=== PATIENT | male | born 1950 | race Asian ===

== ENCOUNTER 2016-10-13 11:36 | Emergency (ER) | payer BC ==
[~2016-10-13] VITALS: Ht 177.8 cm; Wt 85.2 kg
[2016-10-13 11:43] VITALS: BP 179/85; TEMP 98.3; Ht 177.8 cm; Wt 85.2 kg
--- NOTE | 2016-10-13 11:57 | NUR ---
CARE ASSUMED BY ANDRA BUSH
--- NOTE | 2016-10-13 12:03 | NUR ---
Provider Dr. Mckeon currently @ bedside completing MSE @ this time
--- NOTE | 2016-10-13 12:18 | ERPDOC ---
Departure Disposition Decision Date: October 13, 2016 Disposition Decision Time: 13:16 Disposition: 01 DISCHARGED HOME, SELF-CARE Impression Impression Impression: Primary Impression: Fall Encounter type: initial encounter Qualified Codes: W19.XXXA - Unspecified fall, initial encounter Additional Impression: Contusion Encounter type: initial encounter Contusion area: head Contusion of head detail: unspecified part of head Qualified Codes: S00.93XA - Contusion of unspecified part of head, initial encounter Severity: Mild Condition: Improved Seen By: Physician only Referrals: [facility] DO (Family) 2 Days Patient Instructions: Head Injury (ED), Hip Contusion (ED) Problems/Meds/Labs Reviewed?: Yes Medications reviewed and manag: Yes Follow up care ordered?: Yes Mental Status: Alert, Oriented HPI - Fall/Injury General Chief Complaint: Fall Stated Complaint: FELL HIT HEAD Time Seen by Provider: 11:46 Source: patient, family Exam Limitations: no limitations HPI - Fall/Injury Initial Comments 66-year-old male presents to the emergency department with his family for evaluation after suffering a fall 4 days ago. Patient suffered a mechanical fall in the hallway of his home when he slipped with his walking aid and lost his balance. Patient did strike his head. No loss of consciousness. Patient notes that he is experiencing a mild posterior dull headache without radiation. Patient also complains of generalized neck discomfort. Patient denies any other complaints or associated symptoms. Patient states that his symptoms have been persistent in nature since onset. He is currently taking Plavix and Aggrenox due to a history of multiple strokes in the past. Per patient and family at bedside patient is at his neurologic baseline with residual deficit on the left-hand side from prior strokes. Patient denies any chest pain or shortness of breath. Patient does not note any exacerbating or remitting factors. Occurred At: home Onset: Constant Allergies: Coded Allergies: No Known Allergies (Unverified , 10/13/16) Past History Past Medical History Metabolic: diabetes, hypertension Cardiac: CAD Neurological: CVA Surgical History Cardiac: cardiac cath Family History Family PMH: FOUND: diabetes Social History Smoking Status: Never smoker Substance Use Type: does not use Alcohol Intake: none Review of Systems Constitutional Constitutional: DENIES: chills, fever Eyes General: DENIES: erythema, exudate Lids/Accessories: DENIES: erythema, swelling Vision: DENIES: acuity, blurring ENMT Ears: DENIES: drainage, erythema Hearing: DENIES: hearing loss Balance: DENIES: ataxia, falling to one side Sinuses: DENIES: congestion, pain Nose: DENIES: nosebleeds Mouth/Throat: DENIES: painful swallowing, sore throat Teeth: DENIES: pain Jaw: DENIES: pain Cardiovascular Cardiac: DENIES: chest pain, dyspnea on exertion Rhythm/Rate: DENIES: irregular beat, palpitations Vascular: DENIES: pedal edema, unilateral swelling Pulmonary Respiratory: DENIES: cough, dyspnea, pleuritic chest pain, sputum GI Upper Abdomen: DENIES: nausea, pain, vomiting Lower Abdomen: DENIES: diarrhea, pain General: DENIES: burning, dysuria, frequency, urgency Musculoskeletal General: tenderness, DENIES: joint pain Integumentary Skin: DENIES: itching, rash Neurological General: headache, DENIES: change in strength, numbness, weakness Psychiatric Psychiatric: DENIES: emotional instability, suicidal ideation/attempt Endocrine Endocrine: DENIES: polydipsia, polyphagia Hematologic/Lymphatic Hematologic/Lymphatic: DENIES: frequent nosebleeds, lymphadenopathy Allergic/Immunological Allergic/Immunoligical: DENIES: allergic reactions, hives Physical Exam General General Nourishment: well nourished, well developed, appears stated age, no acute distress, adult General Body Habitus: well groomed Vitals and Pain First Documented Vital Signs Date Time Temp Pulse Resp B/P Pulse Ox O2 Delivery O2 Flow Rate FiO2 10/13/16 11:43 98.3 78 16 179/85 96 Room Air Weight: Kilograms: 85.200 Height (feet): 5 Height (inches): 10.00 Triage Pain Scale: RN VS reviewed by Provider: Yes Normal Exams: Head: Normocephalic w/o trauma Eyes: Pupils are PERRLA w/ EOMI, No scleral icterus, irritation, or foreign bodies noted ENMT: No facial trauma, nasal exudates, pharyngeal erythema, or exudates are noted Dental: No fractured, loose, or missing teeth noted Neck: without adenopathy, JVD, bruits or thyromegaly Chest/Resp: Clear all shelley, with good airflow, and symmetry bilaterally CV: Regular rate and rhythm, without murmur or gallop, Pulses 2+ all extremities, capillary refill, <2 seconds all ext., no pedal edema noted Abdomen: Bowel sounds positive, soft, non-tender, non-distended, no hepatosplenomegaly, masses or bruits noted Lymphatic: No lymphadenopathy, or lymphedema noted Musculoskeletal: No tenderness, or deformity noted, good range of motion, all extremities Integumentary: No rashes, hives, or bruising noted, hair and nails, without abnormality Neurologic: Patient is alert, and oriented, cranial nerves, motor/sensory/ cerebellar, exams w/o gross deficits, to observation Psychiatric: Patient exhibits, appropriate attention, emotion and affect Musculoskeletal (brief) Comments Right hip - mildly tender to palpation. Full range of motion. No focal bony tenderness. Pulses intact. Sensation intact. capillary refill less than 2. No other tenderness in the right lower extremity. Gait is normal for patient. No midline tenderness to the cervical spine. + Generalized discomfort. No midline tenderness to the thoracic spine with a generalized paraspinal muscular discomfort. No tenderness to palpation in the lumbar spine. Neurologic (brief) Comments Patient is at neurologic baseline with chronic left-sided deficit from prior CVA. Differential Diagnoses Considering: Contusion, Fracture, Sprain, Strain Progress Results/Orders Orders Procedure Category Date Status Time Ct Head W/O Contrast CT 10/13/16 Resulted 12:11 Ct Cervical Spine W/O CT 10/13/16 Resulted Contrast 12:11 Thoracic Spine RAD 10/13/16 Resulted Series, 3 View 12:11 Pelvis W/2 View Rt Hip RAD 10/13/16 Resulted 12:11 Acetaminophen PHA 10/13/16 Complete (Tylenol Extra 13:15 Medications Current ED Medications Acetaminophen (Tylenol Extra Strength) 1,000 mg O ONCE PO ; Start 10/13/16 at 13:15; Stop 10/13/16 at 13:16; Status DC Progress Progress Imaging is discussed in detail with the patient and family and questions are answered. Patient is given analgesic pain medication with improvement of symptoms in the emergency Department. Patient is discharged home in improved condition. He is to follow up as instructed. Patient is to return to the emergency department if his condition worsens or changes in any manner. Patient and family are in agreement with the current plan of management. Patient is discharged home in improved condition. patient is to follow up as instructed. Patient is to continue to use acetaminophen [id number] as needed for pain control. Xray Xray : Xray: Hip R (negative. Pelvis: Negative. Thoracic spine: Negative) Interpretation: Normal CT CT : CT: Head no contrast Interpretation: Normal (cervical spine: Negative.), Reviewed Written Report MARIAELENA TORRES DO October 13, 2016 12:18
[2016-10-13] MEDS ORDERED: BUME1TAB17 PO (12:21)
[2016-10-13] MEDS ORDERED: [UNRECOGNIZED DRUG - CODE] PO (12:21)
[2016-10-13] MEDS ORDERED: PRAV20TA PO (12:21)
[2016-10-13] MEDS ORDERED: HYDR-4246 PO (12:21)
[2016-10-13] MEDS ORDERED: ALLO300T2 PO (12:21)
[2016-10-13] MEDS ORDERED: ASPI1CPM7 PO (12:21)
[2016-10-13] MEDS ORDERED: INSU100V8 SQ (12:21)
[2016-10-13] MEDS ORDERED: [UNRECOGNIZED DRUG - CODE] (12:21)
[2016-10-13] MEDS ORDERED: ALBU18HF2 INH (12:21)
--- NOTE | 2016-10-13 12:21 | NUR ---
RADIOLOGY PATIENT TO RADIOLOGY FOR CT/ XRAY PER CART, STABLE.
--- NOTE | 2016-10-13 12:42 | DI ---
Indication: ITS.REASON: pain, injury, fall three days ago PROCEDURE: CT HEAD W/O CONTRAST: Encounter: Initial Comparison: November 28, 2012 Technique: Axial CT images through the head were performed without contrast. Iterative Reconstruction dose reducing technique was utilized. FINDINGS: Old left parieto-occipital infarct with encephalomalacia and volume loss. Large chronic left frontal lobe infarct with cystic encephalomalacia and volume loss. Ex vacuo dilatation of the left lateral ventricle is again noted. Old right frontal lobe and basal ganglia infarcts as well. The ventricles are stable. There are numerous areas of low attenuation in the white matter which most likely represent changes from chronic microvascular ischemia. There is no evidence of midline displacement. No hemorrhage, signs of acute territorial stroke, mass effect, mass lesions, or edema is evident. Dense calcifications in the intracranial arteries. The visualized portions of the skull base, midface, and calvarium demonstrate no abnormality. The paranasal sinuses are well aerated and free of significant disease. The tympanic and mastoid cavities appear normal. IMPRESSION: No acute intracranial abnormality or hemorrhage. Chronic changes from multiple prior infarcts. .
--- NOTE | 2016-10-13 12:44 | DI ---
Indication: ITS.REASON: pain, injury, fall three days ago PROCEDURE: CT CERVICAL SPINE W/O CONTRAST: Encounter: Initial Comparison: None Technique: Axial CT images through the cervical spine were performed without contrast. Coronal and sagittal reformatted images were also obtained. Automated Exposure Control and Iterative Reconstruction dose reducing techniques were utilized. FINDINGS: The alignment of the cervical spine is straightened which could be due to positioning or muscular spasm/strain. Multilevel degenerative changes are present. There is no evidence of acute fracture or subluxation of the cervical spine. The atlantoaxial articulation, dens, and upper cervical spine demonstrate no subluxation. Disk osteophyte at C5-C6 resulting in moderate right neural foraminal stenosis. The paraspinal soft tissues and spinal canal appear unremarkable. IMPRESSION: No acute traumatic abnormality of the cervical spine. .
--- NOTE | 2016-10-13 13:07 | DI ---
Indication: ITS.REASON: pain, injury PROCEDURE: PELVIS W/2 VIEW RT HIP: Encounter: Initial Comparison: None Findings: No acute fracture or dislocation. Degenerative change in the lower lumbar spine. Right femoral arterial stent. Impression: No acute fracture. .
--- NOTE | 2016-10-13 13:08 | DI ---
Indication: ITS.REASON: Fall with back pain, injury PROCEDURE: THORACIC SPINE SERIES, 3 VIEW: Encounter: Initial Comparison: None Findings: No acute fracture or subluxation seen. Changes of DISH. Vertebral body heights are maintained. Impression: No acute fracture. .
[2016-10-13] MEDS ORDERED: ACETAMINOPHEN 500 MG TABLET PO ONE (13:15)
[2016-10-13 13:32] VITALS: PULSE 82; RESP 16; O2SAT 97
--- NOTE | 2016-10-13 18:32 | NUR ---
[facility] CALLED TO INFORM OF [facility]. WOMAN ON PHONE STATED SOMEONE WOULD BE BY TO [employer].
== END 2016-10-13 13:30 | disposition home or self-care (01) ==
LOC: ED 11:36
DX: S00.93XA Contusion of unspecified part of head, initial encounter (principal); M25.551 Pain in right hip; M54.2 Cervicalgia; M54.9 Dorsalgia, unspecified; W01.0XXA Fall on same level from slipping, tripping and stumbling without subsequent striking against object, initial encounter; Y93.01 Activity, walking, marching and hiking; Y92.008 Other place in unspecified non-institutional (private) residence as the place of occurrence of the external cause; Y99.8 Other external cause status

== ENCOUNTER 2017-09-28 19:09 | Observation (INO) ==
[2017-09-28] MEDS ORDERED: SALINE FLUSH 10ml SYRINGE IVF PRN (19:34)
[2017-09-28] MEDS ORDERED: ONDANSETRON 4 MG/2 ML INJECTION IVP ONE (19:37)
[2017-09-28] MEDS ORDERED: MORPHINE SULFATE 2mg INJ IVP ONE (19:37)
--- NOTE | 2017-09-28 20:47 | Emergency Department Report ---
Weakness HPI - General Chief complaint: Fall Stated complaint: Fell 3 times today not able to stand or walk Source: family, staff scientist Mode of arrival: wheelchair Limitations: no limitations - History of Present Illness HPI Narrative: PT presents after having fallen 3 times today. Through family staff scientist pt complains of weakness and bilateral ankle pain. He does report a history of gout to explain ankle pain. He reports striking his head. He denies fever, cough , or chest pain. MD Complaint: generalized weakness Onset (ago): hour(s) - Related Data Home Medications Medication Instructions Recorded Confirmed Aspirin/Dipyridamole 1 cap PO BID #0 10/13/16 09/28/17 [Aspirin-Dipyridam ER 25-200 mg] Insulin Glargine,Hum.rec.anlog 25 unit SQ HS #0 vial 10/13/16 09/28/17 [Lantus] Pravastatin Sodium [Pravachol] 20 mg PO HS #0 tab 10/13/16 09/28/17 Albuterol HFA Inhaler [Ventolin 1 - 2 puff ORAL INH Q6HR PRN 09/28/17 09/28/17 Hfa 90 mcg/actuation] Allopurinol [Zyloprim] 300 mg PO BID 09/28/17 09/28/17 Bumetanide Tab [Bumex 1 mg Tab] 1 mg PO DAILY 09/28/17 09/28/17 Cilostazol [Pletal] 50 mg PO BID 09/28/17 09/28/17 Levomefolate/B6/B12/Algal Oil 1 each PO BID 09/28/17 09/28/17 [Foltanx Rf Capsule] Metformin HCl [Glucophage] 1,000 mg PO BID 09/28/17 09/28/17 Propranolol [Inderal] 20 mg PO BID 09/28/17 09/28/17 Allergies Allergy/AdvReac Type Severity Reaction Status Date / Time No Known Allergies Allergy Unverified 08/11/17 13:48 Review of Systems All systems: reviewed and negative except as stated Constitutional: Reports: as per HPI Cardiovascular: Reports: as per HPI Respiratory: Reports: as per HPI Musculoskeletal: Reports: as per HPI Neurological: Reports: as per HPI PFSH Patient Stated Medical History Cerebrovascular Accident Yes: affected right side Dysphagia Yes Hypertension Yes Myocardial Infarction Yes Other Respiratory Yes: uses inhaler prn Diabetes Mellitus Type 2 Yes Gastroesophageal Reflux Yes Disease Hx Incontinence Yes Other Musculoskeletal Yes: gout [facility] Medical History (Last Reviewed 08/11/17 @ 14:41 by Alberto Hernandez MD) Acute CVA (cerebrovascular accident) (Acute Medical) Asthma (Acute Medical) Back pain (Acute Medical) Diabetes (Acute Medical) Essential hypertension (Acute Medical) Gout (Acute Medical) Leg weakness (Acute Medical) Mixed hyperlipidemia (Acute Medical) Peripheral artery disease (Acute Medical) Surgical History: stents placed in legs- 2015 Family History: Family History (Last Reviewed 08/11/17 @ 14:41 by Alberto Hernandez MD) Father High blood pressure Sister High blood pressure Brother High blood pressure Mother Bleeding disorder - Social History Smoking status: Never smoker Substance use type: does not use Alcohol intake frequency: does not drink Household members: spouse Current occupational status: disabled Physical Exam - Limitations Limitations: language barrier - General General appearance: alert, in no apparent distress - Normal Exams: Head:: Normocephalic without trauma Eyes:: Pupils are PERRLA w/ EOMI Chest/Respirations:: Clear all shelley, with good airflow, and symmetry bilaterally Cardiovascular:: Regular rate and rhythm (1+ bilateral non pitting edema bilaterally), without murmur or gallop, Pulses 2+ all extremities, capillary refill, <2 seconds all extremities Abdomen:: Bowel sounds positive, soft, non-tender, non-distended Musculoskeletal:: No tenderness, or deformity noted, good range of motion, all extremities Integumentary:: No rashes Neurological:: Patient is alert, and oriented, cranial nerves, motor/sensory/ cerebellar, exams w/o gross deficits, to observation Psychiatric:: Patient exhibits, appropriate attention, emotion and affect Course Vital Signs Temperature 97.8 F 09/28/17 19:20 Pulse Rate 92 09/28/17 19:20 Respiratory Rate 20 09/28/17 19:20 Blood Pressure 179/104 H 09/28/17 19:20 Pulse Oximetry 100 09/28/17 19:20 Temperature 97.8 F 09/28/17 19:20 Pulse Rate 95 09/28/17 20:30 Respiratory Rate 18 09/28/17 21:42 Blood Pressure 162/97 H 09/28/17 20:30 Pulse Oximetry 97 09/28/17 20:30 Weakness - MDM Narrative Medical decision making narrative: Labs, EKG, CT, and Xray results reviewed with no specific acute findings. 500 cc NS bolus provided as well as medication for pain. Son states pt lives with and normally uses a walker however he has been barely able to get out of a chair. Discussed complaint and findings with Dr Rios who agrees to admit. Pt and family voice understanding of plan - Differential Diagnosis Differential diagnosis: Likely: anemia, hypoglycemia, rhabdomyolysis, dehydration - Lab Data Attestation: I reviewed the patient's lab results. Result diagrams: 09/28/17 19:55 09/28/17 19:55 Lab Results 09/28/17 09/28/17 09/28/17 Range/Units 19:55 19:55 20:00 WBC 9.5 (4.5-11.0) T/MM3 RBC 4.50 (4.50-5.90) M/MM3 Hgb 13.0 L (13.5-17.5) GM/DL Hct 40.0 L (41-53) % MCV 88.9 (80-100) UM3 MCH 28.9 (26-34) UUG MCHC 32.5 (31-37) GM/DL RDW Std Deviation 44.4 (36.9-50.2) FL Plt Count 272 (130-400) T/MM3 MPV 8.9 L (9.4-12.4) UM3 Immature Gran % (Auto) 0.3 (0.0-0.5) % Neut % (Auto) 64.0 (33-66) % Lymph % (Auto) 27.8 (23-45) % [place] % (Auto) 7.0 (0-9.0) % Eos % (Auto) 0.7 (0-4) % Baso % (Auto) 0.2 (0-2) % Neut # (Auto) 6.1 (1.8-7.7) T/MM3 Lymph # (Auto) 2.6 (1-4.8) T/MM3 [place] # (Auto) 0.7 (0-0.8) T/MM3 Eos # (Auto) 0.1 (0-0.5) T/MM3 Baso # (Auto) 0.0 (0-0.2) T/MM3 Abs Immat Gran (auto) 0.03 (0.00-0.03) T/MM3 Turbidity < 20 (0-20) Sodium 143 (134-144) MEQ/L Potassium 4.7 (3.6-5) MEQ/L Chloride 104 (98-107) MEQ/L Carbon Dioxide 29 (22-30) MEQ/L Anion Gap 10 (5-15) meq/L BUN 25.0 H (9-20) MG/DL Creatinine 1.3 (0.8-1.5) mg/dL GFR Calculation 55 BUN/Creatinine Ratio 19 (6-26) RATIO Glucose 302 H (75-110) MG/DL Calculated Osmolality 290 H (261-280) MOSM/KG Calcium 9.3 (8.4-10.2) MG/DL Total Bilirubin 0.50 (0.20-1.30) MG/DL Icterus Index < 2 (0-7) AST 20 (17-59) U/L ALT 21 (1-50) U/L Alkaline Phosphatase 120 (38-126) U/L Troponin I < 0.012 (0-0.12) ng/ml NT-Pro-B Natriuret Pep 267 H (0-175) pg/mL Total Protein 7.0 (6.3-8.2) g/dL Albumin 4.1 (3.5-5.0) g/dL Globulin 2.9 (2.4-3.6) G/DL Albumin/Globulin Ratio 1.4 (1.1-2.2) RATIO Specimen Hemolysis < 15 (0-25) Ur Collection Type Urine, void-cc/notcc Urine Color Yellow (YELLOW) Urine Clarity Clear Urine pH 6.5 (5.0-8.0) Ur Specific [place] 1.010 L (1.015-1.025) Urine Protein Trace A (NEGATIVE) Urine Glucose (UA) 3+ A (NEGATIVE) Urine Ketones Negative (NEGATIVE) Urine Occult Blood Negative (NEGATIVE) Urine Nitrate Negative (NEGATIVE) Urine Bilirubin Negative (NEGATIVE) Urine Urobilinogen 0.2 (NORMAL) EU/DL Ur Leukocyte Esterase Negative (NEGATIVE) Urinalysis Comment Microscopic not ind. - Radiology Data Attestation: I reviewed the patient's radiology results. (reads per Dr Arteaga and Tita) Disposition Clinical Impression: Weakness Disposition: To OBS [facility] [place] Condition: Stable Prescriptions: No Action Aspirin/Dipyridamole [Aspirin-Dipyridam ER 25-200 mg] 1 cap PO BID #0 Insulin Glargine,Hum.rec.anlog [Lantus] 25 unit SQ HS #0 vial Albuterol HFA Inhaler [Ventolin Hfa 90 mcg/actuation] 1 - 2 puff ORAL INH Q6HR PRN PRN Reason: Shortness Of Air/Wheezing Allopurinol [Zyloprim] 300 mg PO BID Bumetanide Tab [Bumex 1 mg Tab] 1 mg PO DAILY Metformin HCl [Glucophage] 1,000 mg PO BID Propranolol [Inderal] 20 mg PO BID Levomefolate/B6/B12/Algal Oil [Foltanx Rf Capsule] 1 each PO BID Pravastatin Sodium [Pravachol] 20 mg PO HS #0 tab Cilostazol [Pletal] 50 mg PO BID Referrals: Maria Teresa Alonso MD [Primary Care Provider] - Time of Disposition: 22:07 - Seen By: sandrita
[2017-09-28] MEDS ORDERED: HYDROCODONE/APAP 5mg/325mg TABLET PO PRN (23:12)
[2017-09-28] MEDS ORDERED: IBUPROFEN 600 MG TABLET PO PRN (23:12)
[2017-09-28] MEDS ORDERED: ONDANSETRON 4 MG/2 ML INJECTION IVP PRN (23:12)
[2017-09-28] MEDS: LR 1,000 ML IV SCH (23:28)
--- NOTE | 2017-09-28 23:56 | History & Physical Report ---
History of Present Illness Date: 09/29/17 Chief complaint: weakness and leg pain HPI: patient seen via telemedicine with nursing assistance on 09/28/2017 Mr. Matta is a 66yo man with history of T2D on insulin, essential HTN, dyslipidemia, CVA, and gout. He present with family to the ED with his son who translates not at the bedside now. Please see ED provider documentation as well. 1.5 weeks of increased weakness reported with nonsyncopal falls. No fevers, chills, nausea, sob or CP. Pain noted in the ankles/R lower leg with possible trauma to lower R ortega with lesion now dressed with no pus per nursing. Note xrays in ED no fx or abnormality. No other recent medication changes noted. Review of Systems All systems PM: 10-point ROS was reviewed, no additional remarkable complaints except Past Medical History Medical History: Medical History (Last Reviewed 08/11/17 @ 14:41 by Alberto Hernandez MD) Acute CVA (cerebrovascular accident) Asthma Back pain Diabetes Essential hypertension Gout Leg weakness Mixed hyperlipidemia Peripheral artery disease Surgical History: stents placed in legs- 2015 Family History: Family History (Last Reviewed 08/11/17 @ 14:41 by Alberto Hernandez MD) Father High blood pressure Sister High blood pressure Brother High blood pressure Mother Bleeding disorder Family History Updates: CAD and HTN Family History: Unable to Obtain (language barrier) - Social History Smoking status: Never smoker Substance use type: does not use Medications Home Medications Medication Instructions Recorded Confirmed Type Aspirin/Dipyridamole 1 cap PO BID #0 10/13/16 09/28/17 History [Aspirin-Dipyridam ER 25-200 mg] Insulin Glargine,Hum.rec.anlog 25 unit SQ HS #0 vial 10/13/16 09/28/17 History [Lantus] Pravastatin Sodium [Pravachol] 20 mg PO HS #0 tab 10/13/16 09/28/17 History Albuterol HFA Inhaler [Ventolin 1 - 2 puff ORAL INH Q6HR PRN 09/28/17 09/28/17 History Hfa 90 mcg/actuation] Allopurinol [Zyloprim] 300 mg PO BID 09/28/17 09/28/17 History Bumetanide Tab [Bumex 1 mg Tab] 1 mg PO DAILY 09/28/17 09/28/17 History Cilostazol [Pletal] 50 mg PO BID 09/28/17 09/28/17 History Levomefolate/B6/B12/Algal Oil 1 each PO BID 09/28/17 09/28/17 History [Foltanx Rf Capsule] Metformin HCl [Glucophage] 1,000 mg PO BID 09/28/17 09/28/17 History Propranolol [Inderal] 20 mg PO BID 09/28/17 09/28/17 History Allergies Allergy/AdvReac Type Severity Reaction Status Date / Time No Known Allergies Allergy Unverified 08/11/17 13:48 Exam Vital Signs: Temperature 97.3 F 09/28/17 23:12 Pulse Rate 97 09/28/17 23:12 Respiratory Rate 18 09/28/17 23:12 Blood Pressure 168/110 H 09/28/17 23:12 Pulse Oximetry 98 09/28/17 23:12 Telemetry Rhythm: Sinus Rhythm Height/Weight/BMI: Weight 83 kg - Constitutional Present: no acute distress - Routine HEENT Exam Head: Present: normocephalic, atraumatic Eye: Present: EOMI - Routine Respiratory Exam Present: CTA bilaterally. Absent: accessory muscle use Comments: anterior exam - Routine Cardiovascular Exam Present: RRR, no murmur - Routine Abdominal Exam Present: soft, normoactive bowel sounds. Absent: tenderness - Routine Extremities Exam Absent: cyanosis, clubbing - Routine Skin Exam Comments: intact except lesion R ant ortega. Chronic venous insufficiency changes LEs - Routine Neurological Exam Present: alert does not speak kenyan. no lateralizing signs Results - Labs CBC & Chem 7: 09/28/17 19:55 09/29/17 04:10 Assessment and Plan (1) HTN (hypertension) Current visit: Yes Status: Acute (2) DM2 (diabetes mellitus, type 2) Current visit: Yes Status: Acute (3) Dyslipidemia Current visit: Yes Status: Acute (4) Gout Current visit: Yes Status: Acute Assessment and Plan: 1. Acute/subacute weakness uncertain etiology. Labs, CT head, EKG, CXR unremarkable. Check ESR, CRP, TSH in AM re PMR/vasculitis, hypothyroidism, see felow. PT eval. Review meds and check CK. Check UA, no infection thusfar evident. SW eval under obs status.Dysl 2. Essential HTN--continue meds 3. G9B--ygfclqsd long acting insulin. DM diet, check CBGs, insulin SS, check A1C 4. Gout on high dose allopurinol. Check uric acid level and would expect to decrease dose. 5. Dyslipidemia on statin--check CK, continue med. 6. CKD3? DVT Prophylaxis: SCD's Resuscitation Status: Full Code - Physician Narrative Physician: Brunilda Villarreal MD Narrative: Date: 09/29/17 Time: 9:30 AM I have seen and examined the patient. I agree with the H&P above. Please see my additions below. The patient was seen accompanied by his son, Lupillo who helps interpret. The patient does speak limited Persian. Chief complaint: Falls History of present illness: The patient is a 66-year-old man with history of type 2 diabetes, peripheral vascular disease, diabetic neuropathy, history of multiple ischemic strokes, chronic back pain with neuroforaminal and central spine stenosis, and mild dementia who previously was getting around in his house using a cane, but has had increased falls over the past week and a half and has required use of a walker and has even fallen several times using his walker and is now using a wheelchair. He also complains that over the past week and a half he is having increased pain in his ankles and he thinks it is a gout flare. He is on allopurinol 300 mg twice daily. He has not missed any of his medications. He has not had any fevers, chills or sweats. He has not had any recent symptoms of infection. He does have some progressive increasing confusion over the past several years after having strokes per his family. He has chronic weakness in his legs and multilevel neural foraminal and central spinal stenosis seen on MRI of the lumbar spine. The patient fell several times yesterday and hit his head once or twice. He did not have loss of consciousness. He denies headache. Comprehensive review of systems: He has chronic intermittent low back pain. He has numbness and tingling in his feet and legs. He has frequent incontinence of urine. He notices occasional palpitations. Otherwise comprehensive review of systems is negative other than the above in history of present illness Past medical history Multiple ischemic strokes Questionable history of asthma for which he uses an inhaler once or twice a week Chronic low back pain with multilevel neuro foraminal and central spine stenosis seen on MRI lumbar spine Poorly controlled type 2 diabetes Essential hypertension Elevated uric acid level with questionable history of gout Hyperlipidemia Peripheral arterial disease for which she has undergone stents in his legs with Dr. Savage History of ME per son for which she sees Dr. Savage. No history of cardiac stents or bypass Past surgical history stents placed in the legs in 2016. No other surgeries Social history: The patient is and he lives with his . His son lives next door and helps take care of him. His son is his alternate decision- maker but he is not certain if he is DPOA. The patient is a lifelong nonsmoker. He is vegetarian. He used to drink alcohol heavily but quit 15-20 years ago. The patient is retired. Family history significant for hypertension in his father and siblings. There is also history of coronary artery disease. Medications are reviewed. Allergies: No known drug allergies Physical exam: The patient was hypertensive last night with blood pressure of 168/110. This morning blood pressure is 145/71 and heart rate was 49-50. Telemetry was placed and he has had no further bradycardia and is in sinus rhythm. O2 sat is 95% on room air. He is afebrile. In general he is alert and in no acute distress. His son helps interpret. HEENT reveals sclerae to be anicteric and pupils are equal. Oropharynx is moist. Neck is supple. Chest is clear to auscultation. Cardio vascular reveals a regular rate and rhythm with a 2/6 systolic murmur. Abdomen is soft and nontender. Extremities reveal no pitting edema. He may have some mild ankle swelling but this is difficult to assess. His ankles appear equal in size. On my exam there does not appear to be increased warmth in his ankles. There is no erythema. He does have some tenderness to palpation but it is not severe. Skin is warm and dry with chronic dunn discoloration to the lower legs. Neurologic reveals the patient to be alert. Cranial nerves II through XII are intact other than some mild right facial droop at the corner of his mouth. Motor strength is 5 over 5 and equal in the upper and lower extremities. I did not assess gait at this time. Lab this morning reveals sodium 142, potassium 4.4, chloride 104, BUN 20, creatinine 1.2, glucose 260. Hemoglobin A1c 10.5. Liver enzymes are normal. Uric acid is 3.5. Calcium 8.8. C-reactive protein less than 5. CPK 83. TSH 3.09. Left ankle x-ray shows closed posttraumatic fifth metatarsal base fracture. CT head shows no evidence of acute traumatic intracranial injury. Multiple old infarcts. Chest x-ray is clear Impression Recurrent falls Bilateral ankle pain-possible gout versus other Left fifth metatarsal base fracture Chronic leg weakness Spinal stenosis Peripheral vascular disease Peripheral neuropathy History of ischemic strokes Poorly controlled type 2 diabetes Hypertension Chronic kidney disease. Creatinine is 1.2 today. Baseline is 1.4 Plan PT and OT consult regarding multiple falls Ortho consult regarding bilateral ankle pain with possible gout and regarding fifth metatarsal fracture Continue allopurinol. Consider consider ankle aspiration to determine if the patient has gout versus pseudogout versus other. 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 Shawn Wilhelm, and he stated that with the patient's current renal function he could tolerate NSAIDs or colchicine if the patient does have gout. Continue other home medications regarding diabetes and hypertension Monitor on telemetry Consider neurology consult if falls are not found to be secondary to ankle pain. Hospital Course Summary Disclaimer: The visit summary below is not to be considered part of the above Progress Note.
[2017-09-29] MEDS: INSULIN GLARGINE 100 UNIT/ML SQ SCH ×2 (00:10→20:53)
[2017-09-29] MEDS: INSULIN ASPART 100unit/ml INJECTION SQ PRN ×3 (05:20→20:59)
--- NOTE | 2017-09-29 08:18 | XRay Report ---
Indication: weakness PROCEDURE: XR chest 1V: Encounter: Initial Comparison: None Findings: Mild interstitial prominence without focal consolidative pneumonia. No pleural effusion or pneumothorax. Heart size and mediastinal contours are within normal limits. Impression: No pneumonia or congestive failure. .
--- NOTE | 2017-09-29 08:18 | XRay Report ---
Indication: pain swelling PROCEDURE: XR ankle LT 2V: Encounter: Initial Comparison: None Findings: Nondisplaced fracture of the fifth metatarsal base. No additional acute fracture. No dislocation. Evidence of old trauma to the distal tibia and fibula. Impression: Closed posttraumatic fifth metatarsal base fracture. .
--- NOTE | 2017-09-29 08:21 | CT Scan Report ---
Indication: multiple falls PROCEDURE: CT head/brain wo con: Encounter: Initial Comparison: October 13, 2016 Technique: Axial CT images through the head were performed without contrast. Iterative Reconstruction dose reducing technique was utilized. FINDINGS: Chronic left [employer] territory infarct with parieto-occipital encephalomalacia. Prior left MCA territory stroke as well with cystic encephalomalacia in the basal ganglia and subinsular region. Multiple old infarcts in the right frontal lobe and basal ganglia. Moderate generalized atrophy. The ventricles are of normal size, shape, and configuration for the patient's age. There is no evidence of acute intracranial hemorrhage, midline displacement, or mass effect. There are scattered areas of low attenuation in the white matter which most likely represent changes of chronic microvascular ischemia. The CT attenuation of the brain parenchyma is otherwise normal within the cerebellum, brain stem, and cerebral hemispheres. The tympanic cavities and mastoid air cells are free of appreciable disease. There are no definite fractures of the skull base, calvarium, or visualized portion of the midface. IMPRESSION: No CT evidence of acute traumatic intracranial injury. Multiple old infarcts. There is a preliminary report by [employer] [facility] [employer] radiologic. .
[2017-09-29] MEDS: LR 1,000 ML IV SCH ×2 (09:49→20:20)
[2017-09-29] MEDS ORDERED: LIDOCAINE 1% (10mg/ml) 10mL MDV ID ONE (10:48)
[2017-09-29] MEDS ORDERED: BUPIVACAINE 0.5% (5mg/ml) PF 30ml INJ SDV INJ ONE (10:48)
[2017-09-29] MEDS ORDERED: LIDOCAINE 1% (10mg/ml) 30ml SDV INJ INJ ONE (10:48)
--- NOTE | 2017-09-29 11:25 | XRay Report ---
Indication: right ankle pain, recent fall PROCEDURE: XR ankle RT min 3V: Encounter: Initial Comparison: None Findings: There is no acute fracture, dislocation or malalignment identified. Soft tissue swelling. Impression: No acute osseous abnormality. .
--- NOTE | 2017-09-29 13:06 | Orthopedic Consult Note ---
Orthopedic Consultation HPI - Consultation Info Consult Date: 09/29/17 Attending Physician: Brunilda Villarreal MD - History of Present Illness Mr. Matta is 66 y/o male who has been experiencing increased falls over the past 1.5 weeks, no syncope. Presented to [facility] ED yesterday with bilateral ankle pain. He states this pain has been occurring for 2-3 years but has increased recently with falls. Patient reports generalized pain of bilateral ankles. Son reports history of gout, however denies erythematous swollen joint with acute gout flare. He is currently on Allopurinol 300mg BID. Xray of left ankle revealed 5th metatarsal base fracture, nondisplaced. It does appear he has an old injury to distal tibia and fibula that is healed. Right ankle xray negative. He does have history of CVA, patient does speak short phrases of Zambian, son translates for him. Review of Systems - Musculoskeletal Musculoskeletal: Present: as per HPI, limited range of motion, tenderness, joint pain PFSH Patient Stated Medical History Cerebrovascular Accident Yes: affected right side Dysphagia Yes Hypertension Yes Myocardial Infarction Yes Other Respiratory Yes: uses inhaler prn Diabetes Mellitus Type 2 Yes Gastroesophageal Reflux Yes Disease Hx Incontinence Yes Other Musculoskeletal Yes: gout Clinic Medical History (Last Reviewed 08/11/17 @ 14:41 by Alberto Hernandez MD) Acute CVA (cerebrovascular accident) (Acute Medical) Asthma (Acute Medical) Back pain (Acute Medical) Diabetes (Acute Medical) Essential hypertension (Acute Medical) Gout (Acute Medical) Leg weakness (Acute Medical) Mixed hyperlipidemia (Acute Medical) Peripheral artery disease (Acute Medical) Surgical History: stents placed in legs- 2016 Family History: Family History (Last Reviewed 08/11/17 @ 14:41 by Alberto Hernandez MD) Father High blood pressure Sister High blood pressure Brother High blood pressure Mother Bleeding disorder Family History Updates: CAD and HTN - Social History Smoking status: Never smoker Substance use type: does not use Alcohol intake frequency: does not drink Household members: spouse Current occupational status: disabled Medications Home Medications Medication Instructions Recorded Confirmed Type Aspirin/Dipyridamole 1 cap PO BID #0 10/13/16 09/28/17 History [Aspirin-Dipyridam ER 25-200 mg] Insulin Glargine,Hum.rec.anlog 25 unit SQ HS #0 vial 10/13/16 09/28/17 History [Lantus] Pravastatin Sodium [Pravachol] 20 mg PO HS #0 tab 10/13/16 09/28/17 History Albuterol HFA Inhaler [Ventolin 1 - 2 puff ORAL INH Q6HR PRN 09/28/17 09/28/17 History Hfa 90 mcg/actuation] Allopurinol [Zyloprim] 300 mg PO BID 09/28/17 09/28/17 History Bumetanide Tab [Bumex 1 mg Tab] 1 mg PO DAILY 09/28/17 09/28/17 History Cilostazol [Pletal] 50 mg PO BID 09/28/17 09/28/17 History Levomefolate/B6/B12/Algal Oil 1 each PO BID 09/28/17 09/28/17 History [Foltanx Rf Capsule] Metformin HCl [Glucophage] 1,000 mg PO BID 09/28/17 09/28/17 History Propranolol [Inderal] 20 mg PO BID 09/28/17 09/28/17 History Allergies Allergy/AdvReac Type Severity Reaction Status Date / Time No Known Allergies Allergy Unverified 08/11/17 13:48 Exam - Constitutional Vital Signs: Temperature 95.9 F L 09/29/17 07:12 Pulse Rate 76 09/29/17 09:18 Respiratory Rate 18 09/29/17 07:12 Blood Pressure 145/71 H 09/29/17 07:12 Pulse Oximetry 97 09/29/17 07:12 General: cooperative, healthy appearing, no acute distress, well developed, well groomed Nutritional Appearance: well nourished Orientation: alert - RLE General: normal to inspection Postoperative Appearance: extremity compartments are soft and nontender, neurovascullary intact to extremities Skin: no ecchymosis Ankle Range of Motion: normal ROM (once relaxed patient able to perform full ROM ) Neurological: no deficits, normal to light touch Vascular: dorsalis pedis pulse within normal limits - LLE General: other (anterior deformity consistent with xray findings) Postoperative Appearance: extremity compartments are soft and nontender, neurovascullary intact to extremities Skin: no ecchymosis Ankle Range of Motion: normal ROM Neurological: no deficits Vascular: dorsalis pedis pulse within normal limits Left Lower Extremity Comments: Minimal tenderness to palpation over base of 5th metatarsal - Labs Result Diagrams: 09/28/17 19:55 09/29/17 04:10 Abnormal lab results 09/29/17 Range/Units 04:10 Glucose 260 H (75-110) MG/DL Hemoglobin A1c 10.5 H (4.0-5.7) % Calculated Osmolality 285 H (261-280) MOSM/KG Impression and Recommendation (1) Fracture of base of fifth metatarsal bone of left foot Current visit: Yes Status: Acute Place in [facility]. PT/OT to eval and treat. WBAT in [facility]. (2) Bilateral ankle pain Current visit: Yes Status: Acute No effusion or erythema on exam. Does not appear consistent with gout. PT/OT to eval and treat Will consider corticosteroid injection if pain does not improve. Hospital Course Summary Disclaimer: The visit summary below is not to be considered part of the above Progress Note.
[2017-09-29] MEDS: PROPRANOLOL 20 MG PO SCH ×2 (13:19→20:52)
[2017-09-29] MEDS: DIPYRIDAMOLE PO SCH ×2 (13:19→20:53)
[2017-09-29] MEDS: ASPIRIN PO SCH ×2 (13:19→20:53)
[2017-09-29] MEDS: ALLOPURINOL 300 MG TAB - PT OWN PO SCH ×2 (13:19→20:53)
[2017-09-29] MEDS ORDERED: PRAVASTATIN 20 MG TABLET PO SCH (21:00)
[2017-09-30] VITALS: RESP 16
[2017-09-30] MEDS: LR 1,000 ML IV SCH (06:12)
--- NOTE | 2017-09-30 08:24 | XRay Report ---
Indication: left 5th metatarsal fracture PROCEDURE: XR foot LT 2V: Encounter: Initial Comparison: Left ankle radiographs dated September 28, 2017 Findings: Minimally comminuted nondisplaced fracture of the fifth metatarsal base is again noted. Bony demineralization. Old deformity of the distal tibia and fibula. No additional acute fracture. No dislocation. Impression: Stable alignment of the nondisplaced fifth metatarsal base fracture. .
--- NOTE | 2017-09-30 08:38 | Orthopedic Progress Note ---
Date: Date: 09/30/17 Time: 833 Subjective/Severity of Illness: Mr. Matta is lying in bed this morning on rounds. He does not have camwalker in place, nursing state patient urinated on camwalker yesterday and was cleaned and drying. There was miscommunication and camwalker was placed on right foot yesterday instead of left. Has been ambulating on left foot with 5th base metatarsal base fracture. Patient continues to report mild bilateral generalized ankle pain. Exam - Constitutional Vital Signs: Temperature 96.6 F L 09/30/17 04:23 Pulse Rate 53 L 09/30/17 04:23 Respiratory Rate 16 09/30/17 04:23 Blood Pressure 150/73 H 09/30/17 04:23 Pulse Oximetry 96 09/30/17 04:23 General: cooperative, healthy appearing, no acute distress, well developed, well groomed Nutritional Appearance: well nourished Orientation: alert - Gait Assistive Device: camboot (left foot) - RLE Postoperative Appearance: extremity compartments are soft and nontender, neurovascullary intact to extremities Skin: no rashes or lesions noted Ankle Range of Motion: normal ROM Neurological: no deficits Vascular: dorsalis pedis pulse within normal limits - LLE Postoperative Appearance: extremity compartments are soft and nontender, neurovascullary intact to extremities Skin: no rashes or lesions noted Neurological: no deficits Vascular: dorsalis pedis pulse within normal limits - Labs Result Diagrams: 09/30/17 07:31 09/30/17 07:31 Abnormal lab results 09/29/17 09/30/17 Range/Units 04:10 07:31 Hgb 12.8 L (13.5-17.5) GM/DL Hct 39.6 L (41-53) % MPV 9.1 L (9.4-12.4) UM3 Abs Immat Gran (auto) 0.04 H (0.00-0.03) T/MM3 ESR 17 H (0-15) mm/h H & H 09/30/17 Range/Units 07:31 Hgb 12.8 L (13.5-17.5) GM/DL Hct 39.6 L (41-53) % Orthopedic Assessment and Plan (1) Fracture of base of fifth metatarsal bone of left foot Status: Acute Assessment and Plan: Camwalker to left foot, WBAT in camwalker Will repeat xray this morning to make sure fracture has not displaced (2) Bilateral ankle pain Status: Acute Hospital Course Summary Disclaimer: The visit summary below is not to be considered part of the above Progress Note.
[2017-09-30] MEDS: DIPYRIDAMOLE PO SCH (09:33)
[2017-09-30] MEDS: ALLOPURINOL 300 MG TAB - PT OWN PO SCH (09:33)
[2017-09-30] MEDS: PROPRANOLOL 20 MG PO SCH (09:33)
[2017-09-30] MEDS: ASPIRIN PO SCH (09:33)
--- NOTE | 2017-09-30 10:46 | Discharge Summary ---
Discharge Information Date of admission: 09/28/17 22:07 Anticipated date of discharge: 09/30/17 Attending Physician: Brunilda Villarreal MD Primary care physician: Maria Teresa Alonso MD Consults: Consulting Provider: Dr. Hernandez Reason For Exam: B.ankle pain(gout?)and left 5th metatarsal fx. - Discharge Diagnosis (1) Fracture of base of fifth metatarsal bone of left foot Status: Acute (2) Weakness Status: Acute Recurrent falls Bilateral ankle pain-possible gout versus other Left fifth metatarsal base fracture Chronic leg weakness Spinal stenosis Peripheral vascular disease Peripheral neuropathy History of ischemic strokes Poorly controlled type 2 diabetes Hypertension Chronic kidney disease. Creatinine Baseline is 1.4 - Laboratory Labs: 09/30/17 07:31 09/30/17 07:31 - Radiology Radiology: Date of Exam: 09/28/17 PROCEDURE: XR ankle LT 2V: Findings: Nondisplaced fracture of the fifth metatarsal base. No additional acute fracture. No dislocation. Evidence of old trauma to the distal tibia and fibula. Impression: Closed posttraumatic fifth metatarsal base fracture. = = = = = = = = = = = = = = = = = = = = = = = = = = = = = = = = = = = = = = = = = = = = = = = = = = = = = = = = = = = Date of Exam: 09/28/17 PROCEDURE: XR chest 1V: Findings: Mild interstitial prominence without focal consolidative pneumonia. No pleural effusion or pneumothorax.Heart size and mediastinal contours are within normal limits. Impression: No pneumonia or congestive failure. = = = = = = = = = = = = = = = = = = = = = = = = = = = = = = = = = = = = = = = = = = = = = = = = = = = = = = = = = = = Date of Exam: 09/28/17 PROCEDURE: CT head/brain wo con: FINDINGS: Chronic left OXYGEN THERAPIST territory infarct with parieto-occipital encephalomalacia. Prior left MCA territory stroke as well with cystic encephalomalacia in the basal ganglia and subinsular region. Multiple old infarcts in the right frontal lobe and basal ganglia. Moderate generalized atrophy. The ventricles are of normal size, shape, and configuration for the patient's age. There is no evidence of acute intracranial hemorrhage, midline displacement, or mass effect. There are scattered areas of low attenuation in the white matter which most likely represent changes of chronic microvascular ischemia. The CT attenuation of the brain parenchyma is otherwise normal within the cerebellum, brain stem, and cerebral hemispheres. The tympanic cavities and mastoid air cells are free of appreciable disease. There are no definite fractures of the skull base, calvarium, or visualized portion of the midface. IMPRESSION: No CT evidence of acute traumatic intracranial injury. Multiple old infarcts. = = = = = = = = = = = = = = = = = = = = = = = = = = = = = = = = = = = = = = = = = = = = = = = = = = = = = = = = = = = Date of Exam: 09/29/17 PROCEDURE: XR ankle RT min 3V: Findings: There is no acute fracture, dislocation or malalignment identified. Soft tissue swelling. Impression: No acute osseous abnormality. = = = = = = = = = = = = = = = = = = = = = = = = = = = = = = = = = = = = = = = = = = = = = = = = = = = = = = = = = = = Date of Exam: 09/30/17 PROCEDURE: XR foot LT 2V: Findings: Minimally comminuted nondisplaced fracture of the fifth metatarsal base is again noted. Bony demineralization. Old deformity of the distal tibia and fibula. No additional acute fracture. No dislocation. Impression: Stable alignment of the nondisplaced fifth metatarsal base fracture. History of Present Illness HPI: The patient is a 66-year-old man with history of type 2 diabetes, peripheral vascular disease, diabetic neuropathy, history of multiple ischemic strokes, chronic back pain with neuroforaminal and central spine stenosis, and mild dementia who previously was getting around in his house using a cane, but has had increased falls over the past week and a half and has required use of a walker and has even fallen several times using his walker and is now using a wheelchair. He also complains that over the past week and a half he is having increased pain in his ankles and he thinks it is a gout flare. He is on allopurinol 300 mg twice daily. He has not missed any of his medications. He has not had any fevers, chills or sweats. He has not had any recent symptoms of infection. He does have some progressive increasing confusion over the past several years after having strokes per his family. He has chronic weakness in his legs and multilevel neural foraminal and central spinal stenosis seen on MRI of the lumbar spine. The patient fell several times yesterday and hit his head once or twice. He did not have loss of consciousness. He denies headache. Objective Vital signs: Temperature 96.4 F L 09/30/17 08:41 Pulse Rate 73 09/30/17 09:32 Respiratory Rate 16 09/30/17 08:41 Blood Pressure 144/84 H 09/30/17 08:41 Pulse Oximetry 95 09/30/17 08:41 Height/Weight/BMI: Weight 82.7 kg - Constitutional Present: no acute distress, well nourished, well developed - Routine HEENT Exam Head: Present: normocephalic Eye: Present: PERRL. Absent: conjunctival icterus, scleral injection ENT: Present: mucous membranes moist, oropharynx clear - Routine Respiratory Exam Present: CTA bilaterally - Routine Cardiovascular Exam Present: RRR, S1, S2, murmur - Routine Abdominal Exam Present: soft, normoactive bowel sounds, non distended, non tender - Routine Extremities Exam Present: no edema Comments: Cam walker LLE - Routine Skin Exam Present: dry, warm, wounds (mepilex dressing to RLE) - Routine Neurological Exam Present: alert, CN II-XII intact (except for mild right facial drrop), moving all extremities, facial asymmetry (mild right facial droop - baseline per son). Absent: motor deficit (BUE equal), normal speech (difficult to understand - baseline per son) - Routine Psychiatric Exam Present: cooperative Hospital Course This is a general summary of the patient's hospital course. For more details refer to the complete medical record. Hospital course: The patient was admitted on 09/29/17 with weakness of uncertain etiology. Initial evaluation was nondiagnostic. Labs showed mild normocytic anemia, mildly elevated ESR of 17, normal CRP, poorly controlled diabetes with a hemoglobin A1c of 10.5%, normal TSH of 3.09. Bumex was not restarted. Orthopedic service was also consulted for ankle pain, possible gout, and fifth metatarsal fracture. Dr. Hernandez recommended a cam walker, weight-bear as tolerated. Exam was not consistent with gout. His rivet heater gas, Dr. Shawn Wilhelm, was contacted and felt it would be acceptable to start him on NSAIDs or colchicine if in fact he does have gout. His home medicines for diabetes and hypertension were continued. PT and OT were consulted, and recommended skilled inpatient therapy. He was screened by IRU and accepted there. He was medically stable for discharge to IRU on 09/30/17. Recommend neuro consult in IRU. Time spent with patient: discharge greater than 30 minutes Resuscitation Status: Full Code Discharge Plan - Discharge Disposition Discharge Date: 09/30/17 Disposition: 60 To [facility] *Condition: Stable Reason For Visit (Visit label in EMR): Weakness Fallls - Discharge Medications *Discharge Medications: Continue Aspirin/Dipyridamole [Aspirin-Dipyridam ER 25-200 mg] 1 cap PO BID #0 Insulin Glargine,Hum.rec.anlog [Lantus] 25 unit SQ HS #0 vial Albuterol HFA Inhaler [Ventolin Hfa 90 mcg/actuation] 1 - 2 puff ORAL INH Q6HR PRN PRN Reason: Shortness Of Air/Wheezing Allopurinol [Zyloprim] 300 mg PO BID Bumetanide Tab [Bumex 1 mg Tab] 1 mg PO DAILY Metformin HCl [Glucophage] 1,000 mg PO BID Propranolol [Inderal] 20 mg PO BID Levomefolate/B6/B12/Algal Oil [Foltanx Rf Capsule] 1 each PO BID Pravastatin Sodium [Pravachol] 20 mg PO HS #0 tab Cilostazol [Pletal] 50 mg PO BID - Discharge Packet/Instructions *Diet: Consistent carbohydrate diet, 2000 kcal per day *Activity: Cam walker, weight-bear as tolerated *Pain Management/Treatment: Tylenol, Motrin, [place] as needed *Wound Care: Mepilex dressing to right lower extremity *Expected Signs/Symptoms: Weakness, left foot pain *Notify Physician if: chest pain, dyspnea, fever, confusion, any new concerns *During Business Hours Contact: call your RN *After Business Hours Contact: call your RN *Pending Lab/Results: Follow up w/your PCP - IRU/GEN Discharge/Transfer - Referrals/Follow Up *Referrals/Follow Up: Maria Teresa Alonso MD [Primary Care Provider] - - Patient Handouts - Dismissal Complete Discharge Instructions are:: Incomplete Physician Narrative - Narrative Physician: Brunilda Villarreal MD Attestation Narrative: Date: 09/30/17 Time: 3:35 PM-I examined the patient independently. I reviewed this chart, the patient history, and the ATTRACTION ATTENDANT's/PA's documented findings as above. We discussed and formulated the assessment and plan as above with the additions below.-Dr. Villarreal Patient was seen today accompanied by his son Lupillo. Patient states that he's feeling okay other than some ankle pains. He denies any headache, chest pain or shortness of breath. He is eating well. On exam he is alert and in no acute distress. HEENT reveals pupils to be equal, extraocular movements are intact, sclerae are anicteric, oropharynx is moist. Neck is supple. Chest is clear to auscultation. Cardiovascular reveals a regular rate and rhythm. Abdomen is soft and nontender. Extremities reveal a Cam Walker to the left lower extremity. Neurologic exam reveals some mild droop at the right side of his mouth. He has some mild left ptosis. Speech is mildly slurred. His son states that the symptoms are chronic. Motor strength is equal eye laterally in the upper and lower extremities on testing today. Impression and plan Worsening gait instability with falls prior to admission. The patient was accepted to inpatient rehabilitation for further strengthening. Dr. Agustin was notified of consult to see the patient Wednesday in inpatient rehabilitation regarding gait instability. He has seen the patient in the past. Regarding bilateral ankle pain, the patient was not felt to have gout at this time. Dr. Hernandez did see the patient and offered steroid injection to the ankles if pain was not improving. Cam Walker was recommended for the left lower extremity for recent metatarsal fracture.
[2017-09-30 11:48] VITALS: BP 164/85; PULSE 51; TEMP 96.6; O2SAT 99
[2017-09-30] MEDS: INSULIN ASPART 100unit/ml INJECTION SQ PRN (12:33)
== END 2017-09-30 15:05 ==
LOC: ED 19:09 → EDHOLD 19:09 → MED 23:01
PROVIDERS: ADMIT Hospitalist; ATTEND Internal Medicine

== ENCOUNTER 2017-09-30 15:07 | Inpatient (IN) ==
[2017-09-30] MEDS ORDERED: ONDANSETRON 4 MG/2 ML INJECTION IVP PRN (15:47)
[2017-09-30] MEDS ORDERED: SALINE FLUSH 10ml SYRINGE IVF PRN (15:47)
[2017-09-30] MEDS ORDERED: HYDROCODONE/APAP 5mg/325mg TABLET PO PRN (15:47)
--- NOTE | 2017-09-30 16:34 | IRU History & Physical Report ---
HPI IRU Date: Date: 09/30/17 Time: 1626 Chief complaint: I'm weak and my ankles hurt HPI: Mr. Matta is a pleasant 66 year old male referred by Dr. Brunilda Villarreal, hospitalist at [facility]. His primary care physician is Onur Alonso M.D. He presented to the emergency department on 09/28/2017 after having fallen 3 times on the day of admission. He did report striking his head. He reported bilateral ankle pain. CT head was unremarkable. Radiograph of the left ankle demonstrated a fracture at the base of the fifth metatarsal bone. He was seen by Dr. Hernandez. He recommended weightbearing as tolerated in a cam boot walker. Regarding the bilateral ankle pain he considered a corticosteroid injection if the pain did not improve. His uric acid and sed rate have been normal. History is obtained from the patient as well as from records. His speech is very difficult to understand. I was able to visit with his son as well for some of the history. It is noted the patient does live with his and has been relatively independent until about 2 weeks ago. His son lives next door and is available to assist. He does have history of multiple medical problems including prior stroke, diabetes mellitus type 2 on insulin and not well controlled, multiple CVAs with residual right-sided weakness and dysphagia and speech difficulties, hypertension and history of gout. He has history of myocardial infarction as well as vascular stents being placed into both lower extremities in 2016. According to his son he has had a downhill course over the last several weeks. He was able to ambulate previously but then started falling. He then was walking with a cane then I believe with a walker and now is in a wheelchair. This has all occurred over the last 2-3 weeks apparently. He does have history of diabetes mellitus. A recent A1c was 10.5 on 09/29/2017. While he was an outpatient in the hospital his blood sugars have been as high as 302. He states that he does check his blood sugars at home or actually that his checks them for him to or 3 times daily. I was not able to understand exactly what they're running at home although he tried to tell me. He indicates that he does not have a problem with low blood sugars. He is apparently on twice -daily insulin at home he states. In addition his blood pressure is been quite high as an outpatient in the hospital. It was running 179/104, 168/110 and most recently 165/85. He has received some as needed hydralazine and is now on lisinopril 20 mg daily. He denies any lightheadedness. He does report that he checks his blood pressures at home and they're typically around 122. His primary area of discomfort involves both ankles. Based on a normal sedimentation rate and normal uric acid I would tend to not think this is related to his gout. Dr. Hernandez saw him and suggested the possibility of injection if it does not improve. He had previously had both knees injected by Dr. Hernandez in July 2017. Prior level of functioning indicates he was modified independent for eating and bathing. He was able to perform grooming and dressing at supervision level. He was able to transfer with supervision and ambulate with a rolling walker or a single-point cane only. He was dependent on others for IADLs however. As noted above, he has had a downhill course over the last couple of weeks. Current level of functioning indicates that he has developed multiple functional deficits. He requires minimum assistance for eating but total assistance for grooming. He requires maximum assistance for upper body dressing and total assistance for lower body dressing. He requires total assistance for bed/chair/wheelchair transfers and walking with a rolling walker only 5 feet. He has evidence of markedly reduced strength and balance as well as reduced endurance. Because of this recent fall with fracture of the base of the left fifth metatarsal as well as his previous strokes and general debilitation, he is not felt to be safe to be at home at this time and requires an intensive inpatient rehabilitation program. He is medically complex and has diabetes and hypertension as well as requires intensive inpatient PT and OT which is not available at a less intensive setting. The following medical conditions are noted and require active monitoring and/or management: 1. Acute fracture of base of left 5th metatarsal. 2. Bilateral ankle pain: ? DJD. Does not appear to be inflammatory. 3. Benign essential hypertension not currently well-controlled. 4. Diabetes Mellitus type II, not controlled based on A1C of 10%, on long-term insulin 5. History of CVA (s) with right sided weakness and speech difficulty The following therapies will be needed: 1. Physical therapy: for transfers and ambulation and stairs. 2. Occupational therapy: for ADL's and transfers. 3. Medical management: for the above conditions. 4. 24 hour Rehabilitation Nursing to monitor and address the following: blood glucose monitoring, BP monitoring, pain management and to reduce fall risk [facility] Patient Stated Medical History Cerebrovascular Accident Yes: affected right side Dysphagia Yes Hypertension Yes Myocardial Infarction Yes Other Respiratory Yes: uses inhaler prn Diabetes Mellitus Type 2 Yes Constipation Yes Gastroesophageal Reflux Yes Disease Hx Incontinence Yes Other Musculoskeletal Yes: gout Clinic Medical History (Last Reviewed 08/11/17 @ 14:41 by Alberto Hernandez MD) Acute CVA (cerebrovascular accident) (Acute Medical) Asthma (Acute Medical) Back pain (Acute Medical) Diabetes (Acute Medical) Essential hypertension (Acute Medical) Gout (Acute Medical) Leg weakness (Acute Medical) Mixed hyperlipidemia (Acute Medical) Peripheral artery disease (Acute Medical) Surgical History: stents placed in legs- 2016 Family History: Family History (Last Reviewed 08/11/17 @ 14:41 by Alberto Hernandez MD) Father High blood pressure Sister High blood pressure Brother High blood pressure Mother Bleeding disorder Family History Updates: CAD and HTN - Social History Smoking status: Never smoker Substance use type: does not use Alcohol intake: never Alcohol intake frequency: does not drink Household members: spouse Current occupational status: disabled Current residence: Apartment/Private Home Social history: Patient lives in his own home with his . He is dependent on her for IADLs but otherwise has been relatively independent. His son does live next door and provide some assistance as well. 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 He is disabled at present. Review of Systems - Constitutional Constitutional: Present: fatigue, weakness. Absent: anorexia, chills, fever(s) , headache(s), lethargy, malaise, night sweats, weight gain, weight loss - EESCT Eyes: Absent: blurry vision, change in vision, diplopia Mouth/Throat: Absent: changes in swallowing, painful swallowing, change in taste , bleeding gums, change in voice - Cardiovascular Cardiovascular: Absent: chest pain, palpitations, syncope, dyspnea on exertion, orthopnea, edema, cyanosis, heart murmur Rhythm: Present: regular rhythm Vascular: Absent: intermittent claudication, pedal edema, unilateral swelling - Respiratory Respiratory: Absent: cough, dyspnea, hemoptysis, dyspnea on exertion, wheezing, pain on inspiration, chest congestion, excessive phlegm production - Gastrointestinal Gastrointestinal: Absent: abdominal pain, change in bowel habits, constipation, diarrhea, dyspepsia, dysphagia, early satiety, hematochezia, melena, nausea, vomiting - Musculoskeletal Musculoskeletal: Present: arthralgias (both ankles). Absent: abnormal gait, back pain, joint swelling, limited range of motion, muscle weakness - Integumentary/Breasts Integumentary: Absent: alopecia, erythema, lesions, pruritus, rash, jaundice - Neurological Neurological: Present: frequent falls, weakness. Absent: abnormal gait, abnormal movements, abnormal speech, confusion, convulsions, dizziness, focal weakness, headache(s), loss of vision, memory loss, numbness, paresthesias, tremor(s) - Psychiatric Psychiatric: Absent: abnormal sleep pattern, anxiety, depression - Endocrine Endocrine: Absent: cold intolerance, flushing, heat intolerance, palpitations - Hematologic/Lymphatic Hematologic/Lymphatic: Absent: easy bleeding, easy bruising, lymphadenopathy - Allergic/Immunologic Allergic/Immunologic: Absent: urticaria Medications Home Medications Medication Instructions Recorded Confirmed Type Aspirin/Dipyridamole 1 cap PO BID #0 10/13/16 09/30/17 History [Aspirin-Dipyridam ER 25-200 mg] Insulin Glargine,Hum.rec.anlog 25 unit SQ HS #0 vial 10/13/16 09/30/17 History [Lantus] Pravastatin Sodium [Pravachol] 20 mg PO HS #0 tab 10/13/16 09/30/17 History Albuterol HFA Inhaler [Ventolin 1 - 2 puff ORAL INH Q6HR PRN 09/28/17 09/30/17 History Hfa 90 mcg/actuation] Allopurinol [Zyloprim] 300 mg PO BID 09/28/17 09/30/17 History Bumetanide Tab [Bumex 1 mg Tab] 1 mg PO DAILY 09/28/17 09/30/17 History Cilostazol [Pletal] 50 mg PO BID 09/28/17 09/30/17 History Levomefolate/B6/B12/Algal Oil 1 each PO BID 09/28/17 09/30/17 History [Foltanx Rf Capsule] Metformin HCl [Glucophage] 1,000 mg PO BID 09/28/17 09/30/17 History Propranolol [Inderal] 20 mg PO BID 09/28/17 09/30/17 History Allergies Allergy/AdvReac Type Severity Reaction Status Date / Time No Known Allergies Allergy Unverified 08/11/17 13:48 Results IRU - Labs Labs: I have reviewed data from the patient's stay as an outpatient in the hospital. Exam Vital Signs: Temperature 98.6 F 09/30/17 15:36 Pulse Rate 69 09/30/17 15:36 Respiratory Rate 16 09/30/17 15:36 Blood Pressure 161/73 H 09/30/17 15:36 Pulse Oximetry 97 09/30/17 15:36 - Constitutional Present: no acute distress, well nourished, well developed, average body habitus , cooperative Comments: He is awake and alert. He makes attempts at speaking. His speech is difficult to understand at this time. - Routine HEENT Exam Head: Present: normocephalic, atraumatic. Absent: cushingoid faces, abrasion, laceration, hematoma Eye: Present: EOMI, PERRL. Absent: conjunctival icterus, scleral injection, periorbital swelling, nystagmus ENT: Present: mucous membranes moist, oropharynx clear. Absent: dentition normal (he has dentures and states he does not have any of his own teeth.) - Routine Neck Exam Present: supple, full ROM, trachea midline. Absent: lymphadenopathy, thyromegaly, tenderness, swelling - Routine Chest/Breast/Axilla Exam Chest wall: Absent: tenderness, mass Axillae: Absent: lymphadenopathy, mass - Routine Respiratory Exam Present: CTA bilaterally. Absent: accessory muscle use, decreased breath sounds , prolonged expiratory phase, rales, respiratory distress, rhonchi, stridor, wheezes, crackles, distant breath sounds - Routine Cardiovascular Exam Present: RRR, S1, S2, no murmur. Absent: gallop, S3, S4, click, irregular rhythm - Routine Abdominal Exam Present: soft, normoactive bowel sounds, non distended, non tender. Absent: rebound, guarding, firm, rigid, organomegaly, mass, hernia, wound - Routine Extremities Exam Present: no edema, non tender, pulses intact. Absent: cyanosis, clubbing Comments: The ankles are not particularly warm nor red nor tender. - Routine Back/Spine/Pelvis Exam Back/Spine: Present: full ROM. Absent: scoliosis, kyphosis - Routine Skin Exam Present: intact, dry, warm. Absent: cyanosis, erythema, pallor, mottling, petechiae, urticaria, lesions, jaundice - Routine Neurological Exam Present: alert, CN II-XII intact, motor deficit (he seems to have weakness in all 4 extremities although the right upper and right lower extremity are weaker than the left.), moving all extremities. Absent: oriented X3 (unable to determine at this time.), normal speech - Routine Psychiatric Exam Present: normal affect, cooperative. Absent: depressed, anxious Sepsis Assessment - Evaluation Severe Sepsis: none seen IRU A/P (1) Fracture of base of fifth metatarsal bone of left foot Qualifiers: Encounter type: subsequent encounter Current visit: No Status: Acute (2) Debility Current visit: Yes Status: Chronic According to his son he has had a downhill course over the last 2-3 weeks. He has generalized weakness. It is noted that he has a history of central spinal stenosis based on MRI of lumbar spine and has chronic lower extremity weakness. (3) HTN (hypertension) Qualifiers: Hypertension type: essential hypertension Qualified Code(s): I10 - Essential (primary) hypertension Current visit: No Status: Chronic His blood pressures have been quite high recently. It is not certain if these are controlled at home or not. He reports they're running 122 at home. 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 He reportedly is on insulin twice daily at home. He checks his sugars 2-3 times daily ( actually checks them) but we do not know what those numbers are running. He will be monitored carefully in this regard. (5) Bilateral ankle pain Qualifiers: Chronicity: chronic Qualified Code(s): M25.571 - Pain in right ankle and joints of right foot; M25.572 - Pain in left ankle and joints of left foot; G89.29 - Other chronic pain Current visit: No Status: Chronic DVT Prophylaxis: SCD's Resuscitation Status: Full Code - Course Hospital Course: Hossein Simms MD: - Interventions to Obtain Goals OT Treatment Plan: ADL (Basic Care), Balance Training, Pt./Family Education, Ther. Exercise for ADL Goals Progress/Modifications: This patient has multiple functional deficits which have worsened over the past week or 2. He reportedly went from walking independently down to using a single- point cane than a front-wheeled walker and now a wheelchair. He has fallen on several occasions. He has a history of multiple strokes remotely. Also has history of multiple "heart attacks." The patient is medically quite complex. His blood sugars have been elevated and his A1c is 10%. His blood pressures have also been elevated. An intensive multidisciplinary approach is indicated to attempt to allow him to get back to his home and be able to function somewhat independently. It is not possible for this to occur at a lesser intensity level of care such as senior living or outpatient because of his multiple medical problems including hypertension and uncontrolled diabetes, bilateral ankle pain and requirement for more intense physical therapy occupational therapy and speech therapy.
--- NOTE | 2017-09-30 16:51 | IRU 24Hr Post Admit Eval ---
24 Hr Post Admission Physical - Relevant Changes Relevant Changes: No Reviewed: I have reviewed the patient's information and concur with the finding and results of the pre-admission screen. Certification: I certify the patient for rehabilitation. - Patient Condition (1) Fracture of base of fifth metatarsal bone of left foot Status: Acute Qualifiers: Encounter type: subsequent encounter Code(s): S92.352A - Displaced fracture of fifth metatarsal bone, left foot, initial encounter for closed fracture Classification: Present on IRF Admission, IRF Tx That Should Address Diagnosis, Diagnosis Requiring Medical Follow Up (2) Debility Status: Chronic Code(s): R53.81 - Other malaise Classification: Present on IRF Admission, IRF Tx That Should Address Diagnosis, Diagnosis Requiring Medical Follow Up (3) HTN (hypertension) Status: Chronic Qualifiers: Hypertension type: essential hypertension Qualified Code(s): I10 - Essential (primary) hypertension Code(s): I10 - Essential (primary) hypertension Classification: Present on IRF Admission, IRF Tx That Should Address Diagnosis, Diagnosis Requiring Medical Follow Up (4) DM2 (diabetes mellitus, type 2) Status: Chronic Qualifiers: 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: with residential use Diabetes mellitus complication status: with circulatory complication Diabetes mellitus complication detail: with peripheral angiopathy without gangrene Qualified Code(s): E11.51 - Type 2 diabetes mellitus with diabetic peripheral angiopathy without gangrene; 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 Code(s): E11.9 - Type 2 diabetes mellitus without complications Classification: Present on IRF Admission, IRF Tx That Should Address Diagnosis, Diagnosis Requiring Medical Follow Up (5) Bilateral ankle pain Status: Chronic Qualifiers: Chronicity: chronic Qualified Code(s): M25.571 - Pain in right ankle and joints of right foot; M25.572 - Pain in left ankle and joints of left foot; G89.29 - Other chronic pain Code(s): M25.571 - Pain in right ankle and joints of right foot; M25.572 - Pain in left ankle and joints of left foot Classification: Present on IRF Admission, IRF Tx That Should Address Diagnosis, Diagnosis Requiring Medical Follow Up - Prior Functional Status Lives With: Spouse Residence Type: Apartment/Private Home Assitive Devices: Wheelchair Prior Functional Status: Depend. at home or school, Used assistive device, Depend. w/ IADL - Current Functional Status Current Level of Function: Current level of functioning indicates that he has developed multiple functional deficits. He requires minimum assistance for eating but total assistance for grooming. He requires maximum assistance for upper body dressing and total assistance for lower body dressing. He requires total assistance for bed/chair/wheelchair transfers and walking with a rolling walker only 5 feet. He has evidence of markedly reduced strength and balance as well as reduced endurance. Patient Requirements: The patient requires oversight by rehabilitation physician to manage their rehabilitation treatment plan and multidisciplinary approach to care that can only be provided in an IRF and requires a multidisciplinary approach to care, provided by professional PTs, OTs, STs, dieticians, RTs, rehabilitation nurses and is not available in lesser levels of care. Limitations Req: Mobility Impairment, ADL Impairment, Cognitive Impairment Therapy: The patient is to receive therapy at least 5 days a week. Plan of Care Comment: Physical therapy: 75 minutes 3 days weekly, 90 minutes 2 days weekly. Occupational therapy: 75 minutes 3 days weekly, 90 minutes 2 days weekly. Speech therapy: 30 minutes 3 days weekly - Complications/Comorbidities Impact on Functional Outcomes: The patient's prior multiple strokes will negatively impact his functional outcome. Barriers to Discharge: Weakness, Balance, Endurance, Comprehension, Pain Control - Plan to Avoid Complications Plan to Avoid Complications: The patient cannot receive this care in a lesser intensive setting such as Shelter or Outpatient Therapy due to the patient requiring the following : He requires close 24-hour rehabilitation nursing monitoring of his blood sugars and blood pressures. He has pain management requirements as well regarding bilateral ankle pain and the recent left fifth metatarsal base fracture. He requires a multidisciplinary approach with physical therapy, occupational therapy and speech therapy in view of his report of dysphagia and his speech difficulty. He requires medical supervision. The intensity of therapy as well as the complexity of his medical status cannot be addressed at a less intensive setting such as group home or outpatient therapy.
[2017-09-30] MEDS: INSULIN ASPART 100unit/ml INJECTION SQ PRN ×2 (17:32→20:52)
[2017-09-30] MEDS: IBUPROFEN 600 MG TABLET PO PRN (17:32)
[2017-09-30] MEDS: ALLOPURINOL 300 MG TABLET PO SCH (20:49)
[2017-09-30] MEDS: PROPRANOLOL 20 MG TABLET PO SCH (20:49)
[2017-09-30] MEDS: PRAVASTATIN 20 MG TABLET PO SCH (20:50)
[2017-09-30] MEDS: ASPIRIN/DIPYRIDAMOLE 25 MG/200 MG CAPSULE PO SCH (20:50)
[2017-09-30] MEDS: INSULIN GLARGINE 100unit/ml INJECTION SQ SCH (20:51)
[2017-10-01 05:03] VITALS: BMI 27.8
[2017-10-01] MEDS: IBUPROFEN 600 MG TABLET PO PRN (08:22)
[2017-10-01] MEDS: PROPRANOLOL 20 MG TABLET PO SCH ×2 (08:22→20:34)
[2017-10-01] MEDS: ASPIRIN/DIPYRIDAMOLE 25 MG/200 MG CAPSULE PO SCH ×2 (08:22→20:34)
[2017-10-01] MEDS: ALLOPURINOL 300 MG TABLET PO SCH ×2 (08:22→20:34)
--- NOTE | 2017-10-01 10:53 | IRU Progress Note ---
- Subjective/Serverity of Illness Date: 10/01/17 I interviewed and examined Mr. Matta in his room today. He is able to communicate mainly by saying yes and no. His speech is difficult to understand otherwise. He reports weakness in the left side but this is chronic. In addition he reports that he has had an MRI of his lumbar spine and had injections at one point. He was seen by Dr. Agustin today. He recommended avoidance of hypotension, strengthening with PT and OT as well as adding on Lyrica for neuropathic pain in his ankles etc. The patient states that his pain is mainly in his ankles are not really in the fifth metatarsal at this time. He denies any chest pain. He denies any shortness of breath. He was evaluated by speech therapy today. He'll be changed to a soft diet. His blood sugars are reviewed. They're reasonably well controlled at less than 200 at present. Review his blood pressures indicated that there adequately controlled for the most part. I do not see any low blood pressures at present. He is cooperative with therapy. However, he is just getting started with him at the present time over the last 24 hours or so. Exam Vital Signs: Temperature 98.1 F 10/01/17 08:00 Pulse Rate 96 10/01/17 08:00 Respiratory Rate 17 10/01/17 08:00 Blood Pressure 137/78 10/01/17 08:00 Pulse Oximetry 96 10/01/17 08:00 Height/Weight/BMI: Height 1.78 m Weight 88 kg Body Mass Index 27.8 - Constitutional Present: no acute distress, well nourished, well developed, cooperative Comments: Able to communicate with yes and no answers. Speech is otherwise difficult to understand. - Routine HEENT Exam Eye: Present: EOMI ENT: Present: mucous membranes moist, oropharynx clear - Routine Neck Exam Present: supple - Routine Respiratory Exam Present: decreased breath sounds, CTA bilaterally. Absent: wheezes - Routine Cardiovascular Exam Present: RRR, S1, S2. Absent: murmur - Routine Abdominal Exam Present: soft, normoactive bowel sounds, non distended. Absent: tenderness - Routine Extremities Exam Present: normal capillary refill - Routine Skin Exam Present: dry, warm - Routine Neurological Exam Present: alert, oriented X3, CN II-XII intact, motor deficit (left upper extremity is slightly weak at 4+ compared to the right side. This is true on nail polish brush machine feeder strength, fine motor movement and flexion and extension at the elbow. Left lower extremity is also weaker than the right but I could not examine it terribly thoroughly due to his recent fracture in the fifth metatarsal as well as the ankle pain.) - Routine Psychiatric Exam Present: normal affect, cooperative Results IRU - Labs Labs: I have reviewed other providers notes as well as laboratory data and chart data. IRU A/P (1) Fracture of base of fifth metatarsal bone of left foot Qualifiers: Encounter type: subsequent encounter Current visit: No Status: Acute This appears to be stable at the present time. He is up with cam boot only. (2) Debility Current visit: Yes Status: Chronic (3) HTN (hypertension) Qualifiers: Hypertension type: essential hypertension Qualified Code(s): I10 - Essential (primary) hypertension Current visit: No Status: Chronic His blood pressures appear to be stable at the present time. We will attempt to avoid hypotension. (4) DM2 (diabetes mellitus, type 2) Qualifiers: Diabetes mellitus solar pv installer insulin use: with solar pv installer use Diabetes mellitus complication status: with circulatory complication Diabetes mellitus complication detail: with peripheral angiopathy without gangrene Qualified Code(s): E11.51 - Type 2 diabetes mellitus with diabetic peripheral angiopathy without gangrene; Z79.4 - patient support representative (current) use of insulin Current visit: No Status: Chronic Blood sugars are reviewed. (5) Bilateral ankle pain Qualifiers: Chronicity: chronic Qualified Code(s): M25.571 - Pain in right ankle and joints of right foot; M25.572 - Pain in left ankle and joints of left foot; G89.29 - Other chronic pain Current visit: No Status: Chronic DVT Prophylaxis: SCD's Resuscitation Status: Full Code - Course Hospital Course: Hossein Simms MD: 10/01/17 10:[address] Agustin today. He will likely need another MRI of his lumbar spine later on as an outpatient. Denies any low back pain but just as lower extremity weakness. Add on Lyrica per recommendation Dr. Agustin in view of possible neuropathic pain in the lower extremities. - Interventions to Obtain Goals PT Treatment Plan: Balance/Proprioception, Functional Activities, Gait Training , Patient/Family Education, Therapeutic Exercise OT Treatment Plan: ADL (Basic Care), Balance Training, Pt./Family Education, Ther. Exercise for ADL Goals Progress/Modifications: Patient's blood sugars are reviewed and overall are stable. His blood pressures are good. We will work to avoid hypotension. In addition we will add on Lyrica at the present time. He has been seen by speech therapy will see him 5 days weekly. Does have evidence of some dysphagia and his diet will be changed to a soft diet. Have discussed case with Dr. Agustin. No acute events are felt to be present from a neurologic standpoint. 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 This required additional medical decision making with regard to interaction of the patient's medical issues with the anticipated functional recovery. Please see separate document
--- NOTE | 2017-10-01 10:59 | IRU Plan of Care ---
[facility] Overall Plan of Care - Date Date: 10/01/17 - Patient Impairments (1) Fracture of base of fifth metatarsal bone of left foot Qualifiers: Encounter type: subsequent encounter Code(s): S92.352A - Displaced fracture of fifth metatarsal bone, left foot, initial encounter for closed fracture Status: Acute Classification: Present on IRF Admission, IRF Tx That Should Address Diagnosis, Diagnosis Requiring Medical Follow Up (2) Debility Code(s): R53.81 - Other malaise Status: Chronic Classification: Present on IRF Admission, IRF Tx That Should Address Diagnosis, Diagnosis Requiring Medical Follow Up (3) HTN (hypertension) Qualifiers: Hypertension type: essential hypertension Qualified Code(s): I10 - Essential (primary) hypertension Code(s): I10 - Essential (primary) hypertension Status: Chronic Classification: Present on IRF Admission, IRF Tx That Should Address Diagnosis, Diagnosis Requiring Medical Follow Up (4) DM2 (diabetes mellitus, type 2) Qualifiers: Diabetes mellitus shelter insulin use: with exterminator helper use Diabetes mellitus complication status: with circulatory complication Diabetes mellitus complication detail: with peripheral angiopathy without gangrene Qualified Code(s): E11.51 - Type 2 diabetes mellitus with diabetic peripheral angiopathy without gangrene; Z79.4 - alf (current) use of insulin Code(s): E11.9 - Type 2 diabetes mellitus without complications Status: Chronic Classification: Present on IRF Admission, IRF Tx That Should Address Diagnosis, Diagnosis Requiring Medical Follow Up (5) Bilateral ankle pain Qualifiers: Chronicity: chronic Qualified Code(s): M25.571 - Pain in right ankle and joints of right foot; M25.572 - Pain in left ankle and joints of left foot; G89.29 - Other chronic pain Code(s): M25.571 - Pain in right ankle and joints of right foot; M25.572 - Pain in left ankle and joints of left foot Status: Chronic Classification: Present on IRF Admission, IRF Tx That Should Address Diagnosis, Diagnosis Requiring Medical Follow Up (6) Late effects of CVA (cerebrovascular accident) Code(s): I69.90 - Unspecified sequelae of unspecified cerebrovascular disease Status: Chronic Classification: Present on IRF Admission, IRF Tx That Should Address Diagnosis ( This is primarily characterized by left sided weakness, dysphagia and speech difficulty), Diagnosis Requiring Medical Follow Up - Relevant Changes Relevant Changes: No Reviewed: I have reviewed the patient's information and concur with the finding and results of the pre-admission screen. Certification: I certify the patient for rehabilitation. - Medical Prognosis Medical Prognosis: Good Vital Signs: Last Vital Signs Temp 98.1 F 10/01/17 08:00 Pulse 96 10/01/17 08:00 Resp 17 10/01/17 08:00 BP 137/78 10/01/17 08:00 Pulse Ox 96 10/01/17 08:00 - Anticipated Interventions Anticipated Interventions: The patient requires inpatient IRF care for PT, OT, and/or ST for residuals remaining from multiple falls with fracture of left 5th metatarsal as well as late effects from prior CVAs resulting in muscular weakness and strength deficits. An individualized overall plan of care has been developed after careful review of the patient's preadmission screening, post admission physician evaluation and assessments of all therapy disciplines and/or other pertinent clinicians involved in treating the patient. This indicates medical necessity and rehabilitation necessity have been established through a thorough review of all available medical information. Strength Deficits: Left Upper Extremity, Left Lower Extremity - Current Functional Status Failed Alternative Therapy: Arrived from Acute Care Patient Requires: The patient requires oversight by rehabilitation physician to manage their rehabilitation treatment plan and multidisciplinary approach to care that can only be provided in an IRF and requires a multidisciplinary approach to care, provided by professional PTs, OTs, STs, rehabilitation nurses, and may require STs, dieticians, and RTS. This is not available in lesser levels of care. Speech-Language Pathology Minutes: 30 Physical Therapy Minutes: 75 Occupational Therapy Minutes: 75 Therapy: The patient is to receive therapy at least 5 days a week. - Anticipated LOS/Outcomes Anticipated Functional Outcome: It is anticipated the patient may be able to return to his home to live with his at modified independent level of functioning. He will still require assistance with some ADLs and will require assistance with IADLs. However it is anticipated that he will be able to return safely to his home environment with assistance of family. Anticipated Length of Stay (days): 14 Anticipated DC Destination: Home, Self Care, Home Health Service Home Safety Plan: The patient will be provided with the development of a Home Safety Plan for return to a home or home-like environment and and to ensure safety post discharge. - Plan to Avoid Complications Barriers to Attaining Goals: Weakness, Endurance, Comprehension Plan to Avoid Complications: The patient cannot receive this care in a lesser intensive setting such as Snf or Outpatient Therapy due to the patient requiring the following : This patient requires an intensive multidisciplinary approach with PT, OT and speech therapy. He requires medical supervision in view of his diabetes mellitus , ankle pain and initiation of new medications including Lyrica. He requires close 24-hour rehabilitation nursing monitoring of his neurologic status, metabolic status and blood pressures. Because of these complex medical features , this cannot be provided safely at a less intensive level of care.
--- NOTE | 2017-10-01 11:01 | Consultation ---
DATE OF CONSULTATION 10/01/[address] Simms and Dr. Villarreal The patient's chief complaint is weakness and fall. HISTORY OF PRESENT ILLNESS The patient is a 66-year-old male with the history of diabetes, diabetic neuropathy, chronic lower back pain, stroke with left-sided weakness, recent left leg fracture and gout. The patient presented to [facility] with progressing leg weakness and falling problem. This has been exacerbated by a recent flare-up of his gout affecting mainly the left foot. The patient also had a fractured his left leg. The patient has been complaining of chronic lower back pain. He received epidural injections in the past. We have no recent MRI or images of his lumbar spine. He denies having any radicular pain at the present time. He also has history of progressive diabetic neuropathy with numbness and tingling and pain in the lower extremities. This has been slowly progressing over the years. The patient had multiple strokes in the past affecting the left side of his body. He has had no recent stroke. His blood pressure has been in the upper range of normal. He denies having any problem with dizziness or low blood pressure problem. PHYSICAL EXAMINATION The patient was awake, alert, oriented x 2. Pupils were round, reactive and equal. Extraocular muscles were intact. Visual field was full. Speech was slow. Motor examination in the upper extremities was 5/5 on the right, 4/5 on the left. In the lower extremities it was 4+/5 on the right and 4-/5 on the left affected by recent fracture. The patient is wearing a boot on his left leg. Sensory examination was limited for light touch and pinprick in all extremities. This has been worse on the left compared to the right. Deep tendon reflexes were 2-/4. Coordination for [id number] was slower on the left compared to the right due to weakness. ASSESSMENT The patient presents with progressive lower extremity weakness and balance problem. This can be associated with his complex past medical history of diabetic neuropathy, lumbar spinal stenosis and spondylosis and left-sided weakness from stroke. There is no apparent one particular condition that has changed dramatically in the past month or so. The most probable cause for weakness at the present time is his diabetic neuropathy and lower back problem. This also is complicated by the fact he had a fracture and gout problem in his legs. PLAN 1. Try to obtain the results of the last MRI of the lumbar spine to assess the degree of damage in that area. 2. Optimize treatment for diabetes. 3. Start patient on Lyrica 75 mg p.o. b.i.d. for diabetic neuropathy pain. 4. Monitor blood pressure closely for any orthostatic changes which can cause the patient to fall. 5. Optimize treatment with physical therapy to improve the patient's strength and balance problem. 6. Continue aspirin for stroke prevention. Patient can benefit from 81-325 mg p.o. b.i.d. 7. The patient may benefit from having a nerve conduction and EMG testing as an outpatient. MTDD
--- NOTE | 2017-10-01 11:34 | Orthopedic Progress Note ---
Date: Date: 10/01/17 Time: 113 Subjective/Severity of Illness: Mr. Matta is sitting up in his chair this morning when I round. He was transferred from medical to IRU yesterday. Overall he reports his bilateral ankle pain has improved. He feels his pain is different and may be from his diabetic neuropathy. He has been ambulating with camwalker on left foot for left 5th metatarsal base fracture. Exam - Constitutional Vital Signs: Temperature 98.1 F 10/01/17 08:00 Pulse Rate 96 10/01/17 08:00 Respiratory Rate 17 10/01/17 08:00 Blood Pressure 137/78 10/01/17 08:00 Pulse Oximetry 96 10/01/17 08:00 General: cooperative, healthy appearing, no acute distress, well developed, well groomed Nutritional Appearance: well nourished Orientation: alert - RLE Postoperative Appearance: extremity compartments are soft and nontender Ankle Range of Motion: normal ROM (non-painful) Neurological: normal to light touch Vascular: dorsalis pedis pulse within normal limits - LLE Postoperative Appearance: extremity compartments are soft and nontender Ankle Range of Motion: normal ROM (nonpainful) Neurological: normal to light touch Vascular: dorsalis pedis pulse within normal limits - Cast/Brace Cast/Brace Side: left Cast/Brace Type: other (camwalker) Condition: in good condition without signs of skin ulceration, exposed digits with good ROM and capillary refill - Respiratory Respiratory Exam: non-labored - Cardiac Cardiovascular exam: pedal pulses intact - Labs Result Diagrams: 10/01/17 04:46 10/01/17 04:46 Abnormal lab results 10/01/17 Range/Units 04:46 RBC 4.31 L (4.50-5.90) M/MM3 Hgb 12.5 L (13.5-17.5) GM/DL Hct 37.7 L (41-53) % MPV 9.0 L (9.4-12.4) UM3 Immature Gran % (Auto) 0.6 H (0.0-0.5) % Abs Immat Gran (auto) 0.05 H (0.00-0.03) T/MM3 H & H 10/01/17 Range/Units 04:46 Hgb 12.5 L (13.5-17.5) GM/DL Hct 37.7 L (41-53) % Orthopedic Assessment and Plan (1) Fracture of base of fifth metatarsal bone of left foot Status: Acute Qualifiers: Encounter type: subsequent encounter Assessment and Plan: WBAT with camwalker left foot. PT/OT for mobilization Follow up outpatient in ortho clinic in 2 weeks. (2) Bilateral ankle pain Status: Chronic Qualifiers: Chronicity: chronic Qualified Code(s): M25.571 - Pain in right ankle and joints of right foot; M25.572 - Pain in left ankle and joints of left foot; G89.29 - Other chronic pain Assessment and Plan: Discussed with Dr. Simms and agree would like to wait on corticosteroid injection. Patient started on Lyrica today for peripheral neuropathy. Will monitor response to this and may consider corticosteroid injection if not improved. Hospital Course Summary Disclaimer: The visit summary below is not to be considered part of the above Progress Note.
[2017-10-01] MEDS: PREGABALIN 75 MG CAPSULE PO SCH ×2 (11:41→20:34)
[2017-10-01] MEDS: INSULIN ASPART 100unit/ml INJECTION SQ PRN ×2 (11:41→20:45)
--- NOTE | 2017-10-01 15:25 | Consult Note ---
Consult Information - Data of Consult Requesting Physician: Hossein Simms MD Primary Care Provider: Maria Teresa Alonso MD - Consult Narrative Reason for consult: ankle pain, generalized debility, weakness History of present illness: Salome Matta is a pleasant 66-year-old male patient of Dr. Onur Alonso M.D. He presented to the emergency department on 09/28/2017 after having fallen 3 times on the day of admission. As his speech is difficult understand, his son translated for him on admission. Prior medical records, ED notes and nursing notes were reviewed and contribute to his history. In the ED, family reported that he has had increased generalized weakness over the past few weeks with multiple, nonsyncopal falls. At the time of evaluation in the ED, he did admit to striking his head but denies any loss of consciousness. He also complained of bilateral ankle pain. CT head was obtained and unremarkable. X-ray of the left ankle demonstrated a fracture at the base of the fifth metatarsal bone. He was admitted under the hospitalist service for observation and further evaluation. During his acute hospitalization, he was seen by Dr. Hernandez (ortho) and placed in a cam boot walker with weightbearing as tolerated. Dr. Hernandez discussed and offered corticosteroid injection to his ankles if his ankle pain did not improve. Labs were closely monitored and relatively unremarkable. Uric acid and sed rate were unremarkable. He was seen and evaluated by therapies who recommended IRU for strengthening and improvement in functional abilities. He was accepted and transferred to IRU on 09/30/17. The hospitalist service was consulted for continued medical management. He does have history of multiple medical problems including prior stroke, diabetes mellitus type 2 on insulin and not well controlled, multiple CVAs with residual right-sided weakness and dysphagia and speech difficulties, hypertension and history of gout. He has history of myocardial infarction as well as vascular stents being placed into both lower extremities in 2016. A recent A1c was 10.5 on 09/29/2017. While he was an outpatient in the hospital his blood sugars have been as high as 302. He states that he does check his blood sugars at home or actually that his , who is his primary interior plant caretaker, checks them for him 2 or 3 times daily. In addition his blood pressure is been quite high as an outpatient in the hospital. It was running 179/104, 168/110 and most recently 165/85. He has received some as needed hydralazine and is now on lisinopril 20 mg daily. He denies any lightheadedness. He does report that he checks his blood pressures at home and they're typically around 122. Past Medical History Medical History: Medical History (Last Reviewed 08/11/17 @ 14:41 by Alberto Hernandez MD) Acute CVA (cerebrovascular accident) Asthma Back pain Diabetes Essential hypertension Gout Leg weakness Mixed hyperlipidemia Peripheral artery disease Surgical History: stents placed in legs- 2016 Family History: Family History Father High blood pressure Sister High blood pressure Brother High blood pressure Mother Bleeding disorder Family History: As Above - Social History Smoking status: Never smoker Substance use type: does not use Alcohol intake frequency: does not drink Housing: house Household members: spouse Current occupational status: retired Current residence: Apartment/Private Home Social history: PCP - Dr. Alonso. The patient is and he lives with his . His son lives next door and helps take care of him. His son is his alternate decision-maker but he is not certain if he is DPOA. He is vegetarian. The patient is retired. Review of Systems All systems PM: 10-point ROS was reviewed, no additional remarkable complaints except - Constitutional Constitutional: Present: weakness. Absent: chills, fever(s) - EENMT Eyes: Absent: change in vision, photophobia Ears: Absent: ear pain Balance: Absent: falling to one side Nose: Absent: nosebleeds Mouth/Throat: Absent: sore throat, changes in swallowing - Cardiovascular Cardiovascular: Absent: chest pain, palpitations, syncope, dyspnea on exertion, orthopnea Vascular: Absent: pallor of an extermity, pedal edema - Respiratory Respiratory: Absent: cough, dyspnea, dyspnea on exertion - Gastrointestinal Gastrointestinal: Absent: abdominal pain, nausea, vomiting - Genitourinary Genitourinary: Absent: dysuria, hematuria - Musculoskeletal Musculoskeletal: Present: muscle weakness. Absent: back pain, deformity - Integumentary/Breasts Integumentary: Absent: rash - Neurological Neurological: Present: frequent falls, weakness. Absent: confusion, dizziness - Psychiatric Psychiatric: Absent: anxiety, depression - Endocrine Endocrine: Absent: flushing, palpitations - Hematologic/Lymphatic Hematologic/Lymphatic: Absent: easy bruising - Allergic/Immunologic Allergic/Immunologic: Absent: seasonal rhinorrhea Medications Home Medications Medication Instructions Recorded Confirmed Type Aspirin/Dipyridamole 1 cap PO BID #0 10/13/16 09/30/17 History [Aspirin-Dipyridam ER 25-200 mg] Insulin Glargine,Hum.rec.anlog 25 unit SQ HS #0 vial 10/13/16 09/30/17 History [Lantus] Pravastatin Sodium [Pravachol] 20 mg PO HS #0 tab 10/13/16 09/30/17 History Albuterol HFA Inhaler [Ventolin 1 - 2 puff ORAL INH Q6HR PRN 09/28/17 09/30/17 History Hfa 90 mcg/actuation] Allopurinol [Zyloprim] 300 mg PO BID 09/28/17 09/30/17 History Bumetanide Tab [Bumex 1 mg Tab] 1 mg PO DAILY 09/28/17 09/30/17 History Cilostazol [Pletal] 50 mg PO BID 09/28/17 09/30/17 History Levomefolate/B6/B12/Algal Oil 1 each PO BID 09/28/17 09/30/17 History [Foltanx Rf Capsule] Metformin HCl [Glucophage] 1,000 mg PO BID 09/28/17 09/30/17 History Propranolol [Inderal] 20 mg PO BID 09/28/17 09/30/17 History Allergies Allergy/AdvReac Type Severity Reaction Status Date / Time No Known Allergies Allergy Verified 09/30/17 16:49 Exam Vital Signs: Temperature 98.1 F 10/01/17 08:00 Pulse Rate 96 10/01/17 08:00 Respiratory Rate 17 10/01/17 08:00 Blood Pressure 137/78 10/01/17 08:00 Pulse Oximetry 96 10/01/17 08:00 Height/Weight/BMI: Height 5 ft 10 in Weight 194 lb 0.108 oz Body Mass Index 27.8 Comments: Patient resting in bed. - Constitutional Present: no acute distress, well nourished, well developed, cooperative - Routine HEENT Exam Head: Present: normocephalic, atraumatic Eye: Present: PERRL. Absent: conjunctival icterus ENT: Present: mucous membranes moist, oropharynx clear - Routine Neck Exam Present: supple, full ROM, trachea midline - Routine Chest/Breast/Axilla Exam Chest wall: Absent: pacemaker - Routine Respiratory Exam Present: CTA bilaterally. Absent: respiratory distress, wheezes - Routine Cardiovascular Exam Present: RRR, S1, S2, murmur (2/6 systolic) - Routine Abdominal Exam Present: soft, normoactive bowel sounds, non tender - Routine Extremities Exam Present: no edema, pulses intact - Routine Back/Spine/Pelvis Exam Back/Spine: Absent: vertebral tenderness - Routine Skin Exam Present: dry, warm Comments: Afebrile. Skin is warm and dry with chronic dunn discoloration to the lower legs. - Routine Neurological Exam Present: alert, CN II-XII intact, moving all extremities, hearing grossly intact , facial asymmetry (mild right facial droop) - Routine Psychiatric Exam Present: cooperative Results - Labs CBC & Chem 7: 10/01/17 04:46 10/01/17 04:46 Assessment and Plan Assessment and Plan: Impression Left fifth metatarsal base fracture Recurrent falls, nonsyncopal Bilateral ankle pain-possible gout versus other Chronic leg weakness Spinal stenosis Peripheral vascular disease Peripheral neuropathy History of ischemic strokes Poorly controlled type 2 diabetes Hypertension Chronic kidney disease. Creatinine is 1.2 today. Baseline is 1.4. Anemia Plan Agree with admission to IRU for continued strengthening and improvement in functional abilities. Pain control per Dr. Simms. Encourage participation in therapies. Continue home medications. Monitor blood sugars closely. Sliding scale insulin as needed. Lantus 25 units QHS. Carb controlled soft diet with nectar thickened liquids. Dr. Agustin to continue to monitor patient while in IRU. Will consult Dr. Hernandez if ankle pain persists and patient is wanting steroid injections. Monitor labs periodically throughout admission. Upon discharge, patient's care will be returned to his PCP. DVT Prophylaxis: SCD's GI Prophylaxis: Protonix Resuscitation Status: Full Code - Time spent with patient Time with patient PN: 70 minutes - Physician Narrative Physician: Valentin Chiang MD Narrative: Date: 10/01/17 Time: 1949 Have independently interviewed & examined pt. Chart reviewed. Case discussed with my PA. Above care plan developed with my supervision; agree with above. Admitted to IRU for restorative therapy following falls and metatarsal fracture. Doing okay this evening. Notes minimal pain to left foot, some discomfort in right. Tolerating therapy. Breathing well-not feeling SOA or congested and denies pain with breathing or cough. No nausea or ab pain. Not having chest pressure. Lungs: decreased, no distress CV: regular AB: soft nt/nd +BS MSE: awake alert appropriate Plan: Agree with admission of patient to IRU to maximize functional status. Encourage participation with therapy. Continue with medications as outlined from acute. Continue with glycemic control, monitoring sugars. Medically stable for IRU floor activities. Will continue to follow patient on IRU for medical care. Hospital Course Summary Disclaimer: The visit summary below is not to be considered part of the above Progress Note. Hospital Course: 10/01/17 Agree with admission to IRU for continued strengthening and improvement in functional abilities. Pain control per Dr. Simms. Encourage participation in therapies. Continue home medications. Monitor blood sugars closely. Sliding scale insulin as needed. Lantus 25 units QHS. Carb controlled soft diet with nectar thickened liquids. Dr. Agustin to continue to monitor patient while in IRU. Will consult Dr. Hernandez if ankle pain persists and patient is wanting steroid injections. Monitor labs periodically throughout admission. Upon discharge, patient's care will be returned to his PCP.
[2017-10-01] MEDS: PRAVASTATIN 20 MG TABLET PO SCH (20:34)
[2017-10-01] MEDS: INSULIN GLARGINE 100unit/ml INJECTION SQ SCH (20:46)
[2017-10-02] MEDS: INSULIN ASPART 100unit/ml INJECTION SQ PRN ×4 (06:29→21:33)
[2017-10-02] MEDS: PREGABALIN 75 MG CAPSULE PO SCH ×2 (08:41→21:32)
[2017-10-02] MEDS: PROPRANOLOL 20 MG TABLET PO SCH (08:41)
[2017-10-02] MEDS: ALLOPURINOL 300 MG TABLET PO SCH ×2 (08:41→21:30)
[2017-10-02] MEDS: ASPIRIN/DIPYRIDAMOLE 25 MG/200 MG CAPSULE PO SCH ×2 (08:41→21:31)
[2017-10-02] MEDS ORDERED: FALL RISK - PHARMACY CONSULT MC ONE (10:42)
[2017-10-02] MEDS: POLYETHYL GLYCOL 3350 17gm PACKET PO SCH (11:58)
[2017-10-02] MEDS: INSULIN GLARGINE 100unit/ml INJECTION SQ SCH (21:31)
[2017-10-02] MEDS: PRAVASTATIN 20 MG TABLET PO SCH (21:32)
[2017-10-02] MEDS: SENNA + DOCUSATE TABLET PO SCH (21:33)
[2017-10-02] MEDS: IBUPROFEN 600 MG TABLET PO PRN (21:36)
[2017-10-02] MEDS: PROPRANOLOL 10 MG TABLET PO SCH (22:00)
[2017-10-03] MEDS: POLYETHYL GLYCOL 3350 17gm PACKET PO SCH (08:51)
[2017-10-03] MEDS: SENNA + DOCUSATE TABLET PO SCH ×2 (08:51→21:06)
[2017-10-03] MEDS: ALLOPURINOL 300 MG TABLET PO SCH ×2 (08:51→21:04)
[2017-10-03] MEDS: PROPRANOLOL 10 MG TABLET PO SCH ×2 (08:51→21:05)
[2017-10-03] MEDS: ASPIRIN/DIPYRIDAMOLE 25 MG/200 MG CAPSULE PO SCH ×2 (08:51→21:04)
[2017-10-03] MEDS: PREGABALIN 75 MG CAPSULE PO SCH ×2 (08:51→21:05)
[2017-10-03] MEDS: INSULIN ASPART 100unit/ml INJECTION SQ PRN ×3 (08:57→21:06)
[2017-10-03] MEDS: INSULIN GLARGINE 100unit/ml INJECTION SQ SCH (21:04)
[2017-10-03] MEDS: PRAVASTATIN 20 MG TABLET PO SCH (21:05)
[2017-10-03] MEDS: IBUPROFEN 600 MG TABLET PO PRN (21:06)
[2017-10-04] MEDS: ASPIRIN/DIPYRIDAMOLE 25 MG/200 MG CAPSULE PO SCH ×2 (08:23→21:01)
[2017-10-04] MEDS: ALLOPURINOL 300 MG TABLET PO SCH ×2 (08:23→21:00)
[2017-10-04] MEDS: POLYETHYL GLYCOL 3350 17gm PACKET PO SCH (08:23)
[2017-10-04] MEDS: PREGABALIN 75 MG CAPSULE PO SCH ×2 (08:24→21:01)
[2017-10-04] MEDS: PROPRANOLOL 10 MG TABLET PO SCH ×2 (08:24→21:01)
[2017-10-04] MEDS: SENNA + DOCUSATE TABLET PO SCH ×2 (08:24→21:01)
--- NOTE | 2017-10-04 10:54 | IRU Progress Note ---
- Subjective/Serverity of Illness Date: 10/04/17 Mr. Matta was interviewed and examined in his room on inpatient rehabilitation. His speech remains difficult to understand. It sounds as though he does have some expressive dysphasia. He is being evaluated and treated by speech therapy predominantly for his swallowing however. Modified barium swallow is requested for tomorrow and this will be performed. He reports that his ankle pain is improved. His fifth metatarsal fracture does not appear to be bothering him much. He is using a cam boot when he ambulates. Brief therapy update: He is working with speech therapy regarding swallowing. Modified barium swallow is recommended for tomorrow. For occupational therapy bathing is with moderate assistance. Upper body dressing is standby assistance and lower body dressing is with maximum assistance. Physical therapy is able to ambulate with assist of 2 people 20 feet with a front-wheeled walker. Transfers are with maximum assistance. Update on medical issues were actively monitoring are managing as follows: 1. Acute fracture of base of left 5th metatarsal: He is followed by orthopedics. Pain does not appear to be an issue. He is wearing his cam boot with ambulation. 2. Bilateral ankle pain: We did start Lyrica last week. He reports his ankle pain is improved. Uncertain if it is really due to neuropathy versus DJD etc. Discussed with orthopedics on Wednesday and we will hold off on injection for now. 3. Benign essential hypertension: Control is improved at 130 or so systolic. Occasional values are pending 150 range. 4. Diabetes Mellitus type II: His blood sugars remain elevated. He is on 25 units of Lantus plus a sliding scale with meals. Management per hospitalist service. 5. History of CVA (s) with left sided weakness and speech difficulty: He continues to have left-sided weakness which is unchanged. His speech is quite difficult to understand. He is also working with speech therapy with regard to swallowing. He remains on nectar thickened liquids and a soft diet. No evidence of aspiration at present based on clinical exam. Exam Vital Signs: Temperature 98.1 F 10/04/17 07:24 Pulse Rate 52 L 10/04/17 07:24 Respiratory Rate 16 10/04/17 07:24 Blood Pressure 129/72 10/04/17 07:24 Pulse Oximetry 98 10/04/17 07:24 Height/Weight/BMI: Height 1.78 m Weight 88 kg Body Mass Index 27.8 - Constitutional Present: no acute distress, well nourished, well developed, cooperative Comments: Speech is difficult to understand. - Routine HEENT Exam Eye: Present: EOMI ENT: Present: mucous membranes moist, oropharynx clear - Routine Respiratory Exam Present: decreased breath sounds, CTA bilaterally. Absent: wheezes, crackles - Routine Cardiovascular Exam Present: RRR, S1, S2, murmur (systolic murmur noted left sternal border grade 2/ 6.) - Routine Abdominal Exam Present: soft, normoactive bowel sounds, non distended. Absent: tenderness - Routine Extremities Exam Present: no edema Comments: Did not remove his cam boot today. 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 Reduced strength flexion at left hip.) Speech extremity difficult to understand. He gets frustrated with trying to speak. - Routine Psychiatric Exam Present: normal affect Results IRU - Labs Labs: Have reviewed labs, chart data and other providers notes. IRU A/P (1) Fracture of base of fifth metatarsal bone of left foot Qualifiers: Encounter type: subsequent encounter Current visit: No Status: Acute This appears to be stable at present. Was seen by orthopedics late last week. Continues to wear cam boot with ambulation. He is making progress with regard to therapy and is able to transfer and ambulate better. (2) Debility Current visit: Yes Status: Chronic (3) HTN (hypertension) Qualifiers: Hypertension type: essential hypertension Qualified Code(s): I10 - Essential (primary) hypertension Current visit: No Status: Chronic Blood pressures are improved. 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 Blood sugars are reviewed and remain elevated. Management per hospitalist service. (5) Bilateral ankle pain Qualifiers: Chronicity: chronic Qualified Code(s): M25.571 - Pain in right ankle and joints of right foot; M25.572 - Pain in left ankle and joints of left foot; G89.29 - Other chronic pain Current visit: No Status: Chronic He reports his ankle pain is improved. We started Lyrica last week. No evidence of excessive sedation at present. 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 Agustin today. He will likely need another MRI of his lumbar spine later on as an outpatient. Denies any low back pain but just as lower extremity weakness. Add on Lyrica per recommendation Dr. Agustin in view of possible neuropathic pain in the lower extremities. 10/04/17 11:00 Tolerating Lyrica well. Ankle pain improved. Sugars remain elevated. He is making functional progress. Modified barium swallow planned for tomorrow. - Interventions to Obtain Goals PT Treatment Plan: Balance/Proprioception, Functional Activities, Gait Training , Patient/Family Education, Therapeutic Exercise OT Treatment Plan: ADL (Basic Care), Balance Training, Pt./Family Education, Ther. Exercise for ADL Goals Progress/Modifications: Patient is cooperative and improving with therapy. Medically he seems stable although sugars remain a bit elevated. His blood pressures are much improved. He reports his ankle pain is improved, possibly secondary to use of Lyrica. I reviewed his functional status and he seems to be improving this regard for both OT and PT. In addition, he is followed by speech therapy for swallowing and remains on a modified diet with thickened liquids and soft food. A modified barium swallow will be obtained tomorrow.
--- NOTE | 2017-10-04 11:36 | Progress Note ---
- Date 10/04/17 Subjective: Mr Matta is seen today in follow up. He is resting in the chair. He is alert and does not appear to be in any distress. He does answer questions with mumbled speech which is difficulty to understand. when asked if he has pain he shakes his head "No". Objective Vital signs: Temperature 98.1 F 10/04/17 07:24 Pulse Rate 52 L 10/04/17 07:24 Respiratory Rate 16 10/04/17 07:24 Blood Pressure 129/72 10/04/17 07:24 Pulse Oximetry 98 10/04/17 07:24 Height/Weight/BMI: Height 1.78 m Weight 88 kg Body Mass Index 27.8 - Constitutional Present: no acute distress, well nourished, well developed - Routine HEENT Exam Eye: Present: EOMI ENT: Present: mucous membranes moist, dentition normal - Routine Respiratory Exam Present: CTA bilaterally. Absent: wheezes - Routine Cardiovascular Exam Present: RRR, S1, S2. Absent: murmur - Routine Abdominal Exam Present: soft, normoactive bowel sounds, non distended. Absent: tenderness - Routine Skin Exam Present: intact, dry, warm - Routine Neurological Exam Present: alert, oriented X3, CN II-XII intact - Routine Lymphatic Exam Lymphatic: Absent: adenopathy - Routine Psychiatric Exam Present: cooperative Results - Labs CBC & Chem 7: 10/01/17 04:46 10/01/17 04:46 Assessment and Plan Assessment and Plan: Impression Left fifth metatarsal base fracture Recurrent falls, nonsyncopal Bilateral ankle pain-possible gout versus other Chronic leg weakness Spinal stenosis Peripheral vascular disease Peripheral neuropathy History of ischemic strokes Poorly controlled type 2 diabetes Hypertension Chronic kidney disease. Creatinine is 1.2 today. Baseline is 1.4. Anemia Plan Continue to encourage work with PT/OT Continue with CAM walker boot to left foot Overall blood sugars elevated. Will add home metformin and continue with Lantus 25 units at HS. Monitor blood pressure Continues to work with speech therapy - Physician Narrative Narrative: Date: 10/04/17 Time: 1133 Hospital Course Summary Disclaimer: The visit summary below is not to be considered part of the above Progress Note. Hospital Course: 10/01/17 Agree with admission to IRU for continued strengthening and improvement in functional abilities. Pain control per Dr. Simms. Encourage participation in therapies. Continue home medications. Monitor blood sugars closely. Sliding scale insulin as needed. Lantus 25 units QHS. Carb controlled soft diet with nectar thickened liquids. Dr. Agustin to continue to monitor patient while in IRU. Will consult Dr. Hernandez if ankle pain persists and patient is wanting steroid injections. Monitor labs periodically throughout admission. Upon discharge, patient's care will be returned to his PCP. 10/04/17 Continue to encourage work with PT/OT Continue with CAM walker boot to left foot Overall blood sugars elevated. Will add home metformin and continue with Lantus 25 units at HS. Monitor blood pressure Continues to work with speech therapy
[2017-10-04] MEDS: INSULIN ASPART 100unit/ml INJECTION SQ PRN ×3 (11:41→21:03)
--- NOTE | 2017-10-04 12:46 | Orthopedic Progress Note ---
Date: Date: 10/04/17 Time: 1241 Subjective/Severity of Illness: Mr. Matta is out in the lunch room eating when I visit. With speech barrier he is difficult to understand. When asked if ankle pain has improved he nods yes. Does feel pain improved since starting Lyrica for neuropathy. He is ambulating with cam walker to left foot. Exam - Constitutional Vital Signs: Temperature 98.1 F 10/04/17 07:24 Pulse Rate 52 L 10/04/17 07:24 Respiratory Rate 16 10/04/17 07:24 Blood Pressure 129/72 10/04/17 07:24 Pulse Oximetry 98 10/04/17 07:24 General: cooperative, healthy appearing, no acute distress, well developed, well groomed Nutritional Appearance: well nourished Orientation: alert - Gait Assistive Device: camboot (left foot) - RLE Postoperative Appearance: extremity compartments are soft and nontender - LLE Postoperative Appearance: extremity compartments are soft and nontender, neurovascullary intact to extremities Skin: no rashes or lesions noted Neurological: normal to light touch Vascular: dorsalis pedis pulse within normal limits, capillary refill <2 seconds - Respiratory Respiratory Exam: non-labored - Cardiac Cardiovascular exam: pedal pulses intact - Labs Result Diagrams: 10/01/17 04:46 10/01/17 04:46 H & H 10/01/17 Range/Units 04:46 Hgb 12.5 L (13.5-17.5) GM/DL Hct 37.7 L (41-53) % Orthopedic Assessment and Plan (1) Fracture of base of fifth metatarsal bone of left foot Status: Acute Qualifiers: Encounter type: subsequent encounter Assessment and Plan: WBAT with camwalker left foot. PT/OT for mobilization Follow up outpatient in ortho clinic in 2 weeks. (2) Bilateral ankle pain Status: Chronic Qualifiers: Chronicity: chronic Qualified Code(s): M25.571 - Pain in right ankle and joints of right foot; M25.572 - Pain in left ankle and joints of left foot; G89.29 - Other chronic pain Assessment and Plan: Since pain continues to improve, and with his DM will hold corticosteroid injection. Continue to monitor pain. Continue PT/OT for mobility Hospital Course Summary Disclaimer: The visit summary below is not to be considered part of the above Progress Note. Hospital Course: 5/18/18 Agree with admission to IRU for continued strengthening and improvement in functional abilities. Pain control per Dr. Simms. Encourage participation in therapies. Continue home medications. Monitor blood sugars closely. Sliding scale insulin as needed. Lantus 25 units QHS. Carb controlled soft diet with nectar thickened liquids. Dr. Agustin to continue to monitor patient while in IRU. Will consult Dr. Hernandez if ankle pain persists and patient is wanting steroid injections. Monitor labs periodically throughout admission. Upon discharge, patient's care will be returned to his PCP. 10/04/17 Continue to encourage work with PT/OT Continue with CAM walker boot to left foot Overall blood sugars elevated. Will add home metformin and continue with Lantus 25 units at HS. Monitor blood pressure Continues to work with speech therapy
--- NOTE | 2017-10-04 14:30 | Progress Note ---
DATE: 10/04/2017 REFERRING PHYSICIAN: Dr. Simms CHIEF COMPLAINT: Weakness and gait problem. HISTORY OF PRESENT ILLNESS Patient continues to have weakness and balance problem. This has been associated with a recent left leg fracture and diabetic neuropathy. His back pain has subsided with the usage of Lyrica. This has helped his neuropathy pain too. The patient continues to work hard with physical and occupational therapy. His diabetes has been fairly controlled with medication with occasional spikes of glucose level in the 300 range. On examination he continues to have moderate lower extremity weakness that has been worse on the left due to his cast. He also has diffuse numbness in the lower extremities and left side. Speech has been very slow and dysarthric due to previous stroke effects. ASSESSMENT Chronic progressive leg weakness associated with lower back pain, history of stroke with left-sided weakness and diabetic neuropathy. PLAN 1. Optimize treatment for diabetes, hypertension and stroke prevention. 2. Continues Lyrica 75 mg p.o. b.i.d. for lower back and neuropathy pain. 3. Continue physical and occupational therapy to improve patient strength and mobility. JOSÉ LUIS
[2017-10-04] MEDS: METFORMIN 1,000 MG TABLET PO SCH ×2 (14:36→17:27)
[2017-10-04] MEDS: PRAVASTATIN 20 MG TABLET PO SCH (21:01)
[2017-10-04] MEDS: IBUPROFEN 600 MG TABLET PO PRN (21:02)
[2017-10-04] MEDS: INSULIN GLARGINE 100unit/ml INJECTION SQ SCH (21:02)
[2017-10-05] MEDS: IBUPROFEN 600 MG TABLET PO PRN (06:13)
[2017-10-05] MEDS: INSULIN ASPART 100unit/ml INJECTION SQ PRN ×3 (06:14→21:01)
[2017-10-05] MEDS: ALLOPURINOL 300 MG TABLET PO SCH ×2 (09:18→20:35)
[2017-10-05] MEDS: METFORMIN 1,000 MG TABLET PO SCH ×2 (09:18→17:38)
[2017-10-05] MEDS: ASPIRIN/DIPYRIDAMOLE 25 MG/200 MG CAPSULE PO SCH ×2 (09:19→20:35)
[2017-10-05] MEDS: PREGABALIN 75 MG CAPSULE PO SCH ×2 (09:19→20:35)
[2017-10-05] MEDS: POLYETHYL GLYCOL 3350 17gm PACKET PO SCH (09:19)
[2017-10-05] MEDS: PROPRANOLOL 10 MG TABLET PO SCH ×2 (09:19→20:35)
[2017-10-05] MEDS: SENNA + DOCUSATE TABLET PO SCH ×2 (09:21→20:35)
--- NOTE | 2017-10-05 10:19 | Fluoroscopy Report ---
Indication:oropharyngeal dysphagia Procedure:FL barium swallow modified MODIFIED BAR. SWALLOW STUDY: Videofluoroscopy was performed in conjunction with a freight representative from speech pathology and a separate report and recommendations will be provided. Varying gradations of barium from thin to solid were administered. Aspiration was visualized with thin consistency barium. No aspiration is visualized at any of the remaining consistencies. Due to the patient's limited mobility and machine capabilities, no AP imaging was able to be obtained. Impression: Aspiration with thin consistency barium. Please see the speech pathology report for additional details and recommendations. Fluoroscopy dose: 2.24 rad Clint Tucker RPA/CATHERINE performed this under my direct supervision. .
--- NOTE | 2017-10-05 10:41 | IRU Progress Note ---
- Subjective/Serverity of Illness Date: 10/05/17 Mr. Matta was interviewed and examined in the inpatient rehabilitation unit. He reports that he is doing better with regard to his ankle pain. He was able to ambulate yesterday with a front-wheeled walker. Denies pain in the left foot area. Wearing a cam boot when he is up and about. Denies chest pain or shortness of breath. Continues to work with PT, OT and speech therapy. A modified barium swallow is scheduled for today. Exam Vital Signs: Temperature 97.9 F 10/05/17 07:10 Pulse Rate 62 10/05/17 07:10 Respiratory Rate 18 10/05/17 07:10 Blood Pressure 136/73 10/05/17 07:10 Pulse Oximetry 95 10/05/17 07:10 Height/Weight/BMI: Height 1.78 m Weight 88 kg Body Mass Index 27.8 - Constitutional Present: no acute distress, well nourished, well developed, average body habitus Comments: He seems frustrated about his speech difficulty. - Routine HEENT Exam Head: Present: normocephalic Eye: Present: EOMI ENT: Present: mucous membranes moist, dentition normal - Routine Neck Exam Present: supple - Routine Respiratory Exam Present: decreased breath sounds, CTA bilaterally. Absent: wheezes - Routine Cardiovascular Exam Present: RRR, S1, S2. Absent: murmur - Routine Abdominal Exam Present: soft, normoactive bowel sounds, non distended. Absent: tenderness - Routine Extremities Exam Present: no edema - Routine Skin Exam Present: dry, warm - Routine Neurological Exam Present: alert, CN II-XII intact, motor deficit (left upper and lower extremity weakness again identified.). Absent: oriented X3, normal speech - Routine Psychiatric Exam Present: normal affect, cooperative Results IRU - Labs Labs: Have reviewed lab results and other providers notes. Appreciate assistance. IRU A/P (1) Fracture of base of fifth metatarsal bone of left foot Qualifiers: Encounter type: subsequent encounter Current visit: No Status: Acute Clinically this is stable. He is cooperative with therapy and making functional gains. (2) Debility Current visit: Yes Status: Chronic (3) HTN (hypertension) Qualifiers: Hypertension type: essential hypertension Qualified Code(s): I10 - Essential (primary) hypertension Current visit: No Status: Chronic His blood pressures somewhat variable being between 130 and 150. (4) DM2 (diabetes mellitus, type 2) Qualifiers: Diabetes mellitus usp insulin use: with usp use Diabetes mellitus complication status: with circulatory complication Diabetes mellitus complication detail: with peripheral angiopathy without gangrene Qualified Code(s): E11.51 - Type 2 diabetes mellitus with diabetic peripheral angiopathy without gangrene; Z79.4 - custodial (current) use of insulin Current visit: No Status: Chronic He was started back on his metformin yesterday and his blood sugars are much improved. (5) Bilateral ankle pain Qualifiers: Chronicity: chronic Qualified Code(s): M25.571 - Pain in right ankle and joints of right foot; M25.572 - Pain in left ankle and joints of left foot; G89.29 - Other chronic pain Current visit: No Status: Chronic This appears to be improved at the present time. 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 Agustin today. He will likely need another MRI of his lumbar spine later on as an outpatient. Denies any low back pain but just as lower extremity weakness. Add on Lyrica per recommendation Dr. Agustin in view of possible neuropathic pain in the lower extremities. 10/04/17 11:00 Tolerating Lyrica well. Ankle pain improved. Sugars remain elevated. He is making functional progress. Modified barium swallow planned for tomorrow. 10/05/17 10:41 Ankle pain improved. Remains on Lyrica. Metformin if needed and this has helped his sugars. Modified barium swallow today. - Interventions to Obtain Goals PT Treatment Plan: Balance/Proprioception, Functional Activities, Gait Training , Patient/Family Education, Therapeutic Exercise OT Treatment Plan: ADL (Basic Care), Balance Training, Pt./Family Education, Ther. Exercise for ADL
--- NOTE | 2017-10-05 13:39 | IRU Team Meeting ---
IRU Team Meeting - Nursing Bladder Assistive Devices Utilized:: Absorbent Pad Bladder Management Level of Assist: Total Assistance Bladder Frequency of Accidents: 2 accidents this shift Bowel Assistive Devices Utilized:: Medication Bowel Management Level of Assist: Modified Independent Bowel Frequency of Accidents: No accidents Vital Signs: Vital Signs - 24 hr 10/04/17 16:00 10/04/17 23:31 10/05/17 07:10 Temperature 97.5 F 98.3 F 97.9 F Pulse Rate 71 78 62 Respiratory Rate 18 16 18 Blood Pressure 159/90 H 154/88 H 136/73 Pulse Oximetry 98 95 95 Current Medications: Hydrocodone Bitart/Acetaminophen ([place] 5/325) 1 tab PO Q6H PRN PRN Reason: Pain Allopurinol (Zyloprim) 300 mg PO BID [facility] Last Admin: 10/05/17 09:18 Dose: 300 mg Dipyridamole/Aspirin (Aggrenox) 1 cap PO BID [facility] Last Admin: 10/05/17 09:19 Dose: 1 cap Ibuprofen (Motrin) 600 mg PO Q6H PRN PRN Reason: Pain Last Admin: 10/05/17 06:13 Dose: 600 mg Insulin Aspart (Novolog) 2 - 8 unit SQ SS PRN; Protocol PRN Reason: Hyperglycemia Last Admin: 10/05/17 06:14 Dose: 2 unit Insulin Glargine (Lantus) 25 unit SQ HS [facility] Last Admin: 10/04/17 21:02 Dose: 25 unit Magnesium Hydroxide (Mom) 30 ml PO DAILY PRN PRN Reason: Constipation Metformin HCl (Glucophage) 1,000 mg PO BIDWM [facility] Last Admin: 10/05/17 09:18 Dose: 1,000 mg Ondansetron HCl (Zofran) 4 mg IVP Q6H PRN PRN Reason: Nausea &/or vomiting Polyethylene Glycol (Miralax) 17 gm PO DAILY [facility] Last Admin: 10/05/17 09:19 Dose: 17 gm Pravastatin Sodium (Pravachol) 20 mg PO [facility] Last Admin: 10/04/17 21:01 Dose: 20 mg Pregabalin (Lyrica) 75 mg PO BID [facility] Last Admin: 10/05/17 09:19 Dose: 75 mg Propranolol HCl (Inderal) 10 mg PO BID [facility] Last Admin: 10/05/17 09:19 Dose: 10 mg Senna/Docusate Sodium (Senna Plus Tablet) 1 tab PO BID [facility] Last Admin: 10/05/17 09:21 Dose: 1 tab Sodium Chloride (Iv Flush) 10 - 80 ml IVF PRN PRN PRN Reason: Flushing Last Admin: 10/01/17 08:23 Dose: 10 ml Current Medical Issues: Diabetes mellitus, late effects of prior strokes, bilateral ankle pain, fracture of left fifth metatarsal Comments: I certify that I personally led the interdisciplinary team meeting and agree with comments, barriers and goals indicated. Team meeting was held in the patient's room with the patient and the following family members present: Son Lupillo was present after Team and PT/OT and I spoke with him after the Team meeting. Mr. Matta continues to improve with regard his blood sugar control. He was running fairly high but his metformin was restarted and now that sugars are improved. His blood pressures are doing well. His bilateral ankle pain seems to be improved with the use of Lyrica. - Dietary Patient's family has been instructed in appropriate dietary his diabetes, vegetarian lifestyle. He will need to remain on nectar thickened liquids with straw rather than a cup. He will also need to stay on a soft, chopped diet. - Speech Therapy Modified barium swallow was performed demonstrating aspiration with thin liquids. [place] thickened liquids with use of a straw as well as intake of soft , chopped solids is recommended. - Physical Therapy Bed, Chair, Wheelchair Transfer Assist: Maximal Assistance Ambulation Ability: Maximal Assistance, 1 Person Assist Ambulation Distance: 57 Wheelchair Propulsion Ability: Stand By Assist/Supervision, Household Exception Wheelchair Propulsion Distance: 130 Stair Climbing Ability: Patient Unsafe/Unable Comments: Patient is using a larger front-wheeled walker. His assistance requirements are improving. He does require assistance of 1 for ambulation and transfers. He does have poor balance. He currently requires maximum assistance for sit to stand transfer of 1 person. He is making functional progress. Family training is recommended and will occur tomorrow. - Occupational Therapy Eating Ability: Minimal Assistance Grooming Ability: Stand By Assist/Supervision Bathing Ability: Moderate Assistance Upper Body Dressing Ability: Stand By Assist/Supervision Lower Body Dressing Ability: Maximal Assistance Tub Transfer Assist: Patient Unsafe/Unable Toileting Assist: Total Assistance Toilet Transfer Assist: Maximal Assistance, 2 or More Person Assist Comments: He is using bedside commode and long handled shoe horn with a raised toilet seat. He demonstrates sit to stand etc. walker with maximum assist of one. He is making functional improvement in his ADLs. Family training is recommended and will occur tomorrow. - Goals Physical Therapy Goals: 10/05/17 Goals: 1.) Family Observation to asses prior level and needs prior to discharge. 2.) Minimal assist with sit to stand transfers. 3.) Achieve standing balance within 10 seconds of standing with minimal assist. Occupational Therapy Goals: OT goals 10/05/17: 1.) Lower body dressing with minimal assistance. 2.) Toilet transfers with contact guard assistance. Speech Therapy Goals: Dysphagia goals: Pt will consume a [soft] consistency with [reg] liquids without outward signs of aspiration at bedside in 85% of trials. Pt will demonstrate [2] out of [2] components necessary for a safe swallow as listed from the following [1. alternate sips of liquids with bites of food, 2. take small bites/sips]. Communication Goals: Pt will complete exercises to improve strength and endurance of oral structures with minimal cues with mild cues. Pt will complete diaphragmatic breathing exercises to improve phonation during with mild cue. Pt will identify 3/3 compensatory strategies for improving dysarthric speech (slowing rate, over articulation of speech, increased volume) independently. Pt will pictures/objects with 90% accuracy independently. Pt will formulate phrase/sentence to describe pictures/objects with 90% accuracy mild cue. - Barriers to Discharge Barriers to Attaining Goals: Weakness (progressive resistive therapeutic exercises offered.), Endurance (efforts and encouraging fewer rest breaks and increased activity time are offered.) - Care Plan Anticipated Length of Stay (days): 4 Anticipated DC Destination: Home, Self Care I have led this team conference and agree with the plan. Interventions/Goals: Patient is making functional progress. Medically he is stable. It is anticipated he will be stable for dismissal on Wednesday after therapy in the morning. Family training will occur tomorrow and thereafter.
[2017-10-05] MEDS: PRAVASTATIN 20 MG TABLET PO SCH (20:35)
[2017-10-05] MEDS: INSULIN GLARGINE 100unit/ml INJECTION SQ SCH (20:35)
[2017-10-06] MEDS: PREGABALIN 75 MG CAPSULE PO SCH ×2 (08:49→20:47)
[2017-10-06] MEDS: METFORMIN 1,000 MG TABLET PO SCH ×2 (08:49→17:30)
[2017-10-06] MEDS: SENNA + DOCUSATE TABLET PO SCH ×2 (08:49→20:47)
[2017-10-06] MEDS: PROPRANOLOL 10 MG TABLET PO SCH ×2 (08:50→20:46)
[2017-10-06] MEDS: ASPIRIN/DIPYRIDAMOLE 25 MG/200 MG CAPSULE PO SCH ×2 (08:50→20:46)
[2017-10-06] MEDS: ALLOPURINOL 300 MG TABLET PO SCH ×2 (08:50→20:47)
[2017-10-06] MEDS: POLYETHYL GLYCOL 3350 17gm PACKET PO SCH (08:50)
[2017-10-06] MEDS: INSULIN ASPART 100unit/ml INJECTION SQ PRN (12:17)
--- NOTE | 2017-10-06 12:33 | IRU Progress Note ---
- Subjective/Serverity of Illness Date: 10/06/17 Mr. Matta was interviewed & examined w/ his son present on IRU. He denies pain at this time. He is currently wearing the CAM boot, which his son has some questions about. He has been able to ambulate w/ front-wheeled walker & participate well w/ PT, OT & ST. Conversation somewhat limited d/t dementia & language barrier, but son was able to translate some. He reports that the patient speaks [place], which is close to [place], so if we could find a timber hand for [place] that might suffice. ROS: CV: denies CP/pressure or palpitations Lungs: denies SOA, cough GI: denies abd pain, constip or diarrhea Neuro: denies any new nerological symptoms as best we can tell from his answers MS: denies pain in left ankle Exam Vital Signs: Temperature 98.0 F 10/06/17 08:00 Pulse Rate 70 10/06/17 08:00 Respiratory Rate 18 10/06/17 08:00 Blood Pressure 157/93 H 10/06/17 08:00 Pulse Oximetry 93 10/06/17 08:00 Height/Weight/BMI: Height 1.78 m Weight 90.8 kg Body Mass Index 27.8 - Constitutional Present: no acute distress, well nourished, well developed, cooperative - Routine HEENT Exam Head: Present: normocephalic, atraumatic Eye: Present: EOMI. Absent: conjunctival icterus, scleral injection ENT: Present: mucous membranes moist, oropharynx clear - Routine Neck Exam Present: supple, full ROM - Routine Chest/Breast/Axilla Exam Chest wall: Absent: tenderness - Routine Respiratory Exam Present: CTA bilaterally. Absent: accessory muscle use, dyspnea, decreased breath sounds, respiratory distress, rhonchi, wheezes, crackles - Routine Cardiovascular Exam Present: RRR - Routine Abdominal Exam Present: soft, normoactive bowel sounds, non distended, non tender. Absent: tenderness, rebound, guarding - Routine Extremities Exam Present: cyanosis Comments: LLE in CAM boot, minimal edema RLE. - Routine Skin Exam Present: intact, dry. Absent: erythema - Routine Neurological Exam Present: alert - Routine Psychiatric Exam Present: normal affect, unable to assess Results IRU - Labs Labs: Laboratory Tests 10/06/17 10/06/17 06:24 11:36 Glucometer 90 158 - Impressions Blood sugars have improved. Managed by hospitalist team. Radiology: Aspiration of thin liquids noted on modified barium swallow, did improve w/ thickened liquids per ST. 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 Agustin today. He will likely need another MRI of his lumbar spine later on as an outpatient. Denies any low back pain but just as lower extremity weakness. Add on Lyrica per recommendation Dr. Agustin in view of possible neuropathic pain in the lower extremities. 10/04/17 11:00 Tolerating Lyrica well. Ankle pain improved. Sugars remain elevated. He is making functional progress. Modified barium swallow planned for tomorrow. 10/05/17 10:41 Ankle pain improved. Remains on Lyrica. Metformin if needed and this has helped his sugars. Modified barium swallow today. 10/06/17 12:43 Denies ankle pain today. Blood sugars improved today, continue metformin. Remains on lyrica & seems to be tolerating. Barium swallow yesterday did show aspiration of thin liquids. Per ST that did improve w/ thickened liquids so this therapy has changed. 10/06/17 12:56 - Interventions to Obtain Goals PT Treatment Plan: Balance/Proprioception, Functional Activities, Gait Training , Patient/Family Education, Therapeutic Exercise OT Treatment Plan: ADL (Basic Care), Balance Training, Pt./Family Education, Ther. Exercise for ADL
[2017-10-06] MEDS: INSULIN GLARGINE 100unit/ml INJECTION SQ SCH (20:46)
[2017-10-06] MEDS: PRAVASTATIN 20 MG TABLET PO SCH (20:47)
[2017-10-07] MEDS: ALLOPURINOL 300 MG TABLET PO SCH ×2 (08:15→22:49)
[2017-10-07] MEDS: ASPIRIN/DIPYRIDAMOLE 25 MG/200 MG CAPSULE PO SCH ×2 (08:15→22:49)
[2017-10-07] MEDS: METFORMIN 1,000 MG TABLET PO SCH ×2 (08:15→17:17)
[2017-10-07] MEDS: PROPRANOLOL 10 MG TABLET PO SCH ×2 (08:15→22:50)
[2017-10-07] MEDS: PREGABALIN 75 MG CAPSULE PO SCH ×2 (08:15→22:50)
[2017-10-07] MEDS: POLYETHYL GLYCOL 3350 17gm PACKET PO SCH (08:16)
[2017-10-07] MEDS: SENNA + DOCUSATE TABLET PO SCH ×2 (08:16→22:51)
[2017-10-07] MEDS: INSULIN ASPART 100unit/ml INJECTION SQ PRN ×2 (12:34→22:51)
--- NOTE | 2017-10-07 14:09 | Progress Note ---
- Date 10/07/17 Subjective: "Ralph" was resting in the recliner in his room, awake & alert, no distress. RN called me earlier today to report that he aspirated last night after drinking too quickly. He had a wet cough last night, but today is improved. He denies feeling short of breath or having fever. No cough today. He denies n/v or recurrent aspiration. He feels "a bit" tired. Denies left foot pain. Objective Vital signs: Temperature 97.8 F 10/07/17 07:30 Pulse Rate 69 10/07/17 07:30 Respiratory Rate 16 10/07/17 07:30 Blood Pressure 147/83 H 10/07/17 07:30 Pulse Oximetry 99 10/06/17 20:12 Height/Weight/BMI: Height 1.78 m Weight 90.8 kg Body Mass Index 27.8 - Constitutional Present: no acute distress, well nourished, well developed - Routine HEENT Exam Head: Present: normocephalic Eye: Present: PERRL. Absent: conjunctival icterus, scleral injection - Routine Respiratory Exam Present: CTA bilaterally - Routine Cardiovascular Exam Present: RRR, S1, S2 - Routine Abdominal Exam Present: soft, normoactive bowel sounds, non distended, non tender - Routine Extremities Exam Present: edema (RLE) Comments: CAM boot to LLE - Routine Skin Exam Present: intact, dry, warm - Routine Neurological Exam Present: alert, motor deficit (left arm/leg weakness compared to right), facial asymmetry (chronic unilateral droop) - Routine Psychiatric Exam Present: cooperative. Absent: normal affect (flat) Results - Labs CBC & Chem 7: 10/01/17 04:46 10/01/17 04:46 Assessment and Plan Assessment and Plan: Impression Left fifth metatarsal base fracture Recurrent falls, nonsyncopal Bilateral ankle pain-possible gout versus other Chronic leg weakness Spinal stenosis Peripheral vascular disease Peripheral neuropathy History of ischemic strokes Poorly controlled type 2 diabetes Hypertension Chronic kidney disease. Creatinine is 1.2 today. Baseline is 1.4. Anemia Plan Aspirated on 10/06/17 - obtain CXR, CBC, BMP. He denies current sx but is limited d/t dementia. Modified barium: Aspiration with thin consistency barium Dr. Agustin recommended starting Lyrica 75 mg BID for diabetic neuropathy pain. May need outpatient nerve conduction and EMG testing. BG overall stable on current diabetic regimen. Resuscitation Status: Full Code - Physician Narrative Narrative: Date: 10/07/17 Time: 1405 Hospital Course Summary Disclaimer: The visit summary below is not to be considered part of the above Progress Note. Hospital Course: 10/01/17 Agree with admission to IRU for continued strengthening and improvement in functional abilities. Pain control per Dr. Simms. Encourage participation in therapies. Continue home medications. Monitor blood sugars closely. Sliding scale insulin as needed. Lantus 25 units QHS. Carb controlled soft diet with nectar thickened liquids. Dr. Agustin to continue to monitor patient while in IRU. Will consult Dr. Hernandez if ankle pain persists and patient is wanting steroid injections. Monitor labs periodically throughout admission. Upon discharge, patient's care will be returned to his PCP. 10/04/17 Continue to encourage work with PT/OT Continue with CAM walker boot to left foot Overall blood sugars elevated. Will add home metformin and continue with Lantus 25 units at HS. Monitor blood pressure Continues to work with speech therapy 10/07/17 Aspirated on 10/06/17 - obtain CXR, CBC, BMP. He denies current sx but is limited d/t dementia. Modified barium: Aspiration with thin consistency barium Dr. Agustin recommended starting Lyrica 75 mg BID for diabetic neuropathy pain. May need outpatient nerve conduction and EMG testing. BG overall stable on current diabetic regimen.
--- NOTE | 2017-10-07 15:09 | XRay Report ---
INDICATION: aspiration PROCEDURE: CHEST 2-VIEWS UPRIGHT (PA & LAT) Encounter: Initial COMPARISON: September 28, 2017 Findings: The lungs are stable in appearance without new focal airspace consolidation. There is no pleural effusion or pneumothorax. The heart size, pulmonary vascularity and mediastinal contours are unchanged. IMPRESSION: Stable appearance of the chest without acute cardiopulmonary disease. .
[2017-10-07] MEDS: FUROSEMIDE 40 MG TABLET PO SCH (15:29)
[2017-10-07] MEDS: PRAVASTATIN 20 MG TABLET PO SCH (22:50)
[2017-10-07] MEDS: INSULIN GLARGINE 100unit/ml INJECTION SQ SCH (22:50)
[2017-10-08] MEDS: POLYETHYL GLYCOL 3350 17gm PACKET PO SCH (08:17)
[2017-10-08] MEDS: SENNA + DOCUSATE TABLET PO SCH ×2 (08:17→21:36)
[2017-10-08] MEDS: ALLOPURINOL 300 MG TABLET PO SCH ×2 (08:17→21:33)
[2017-10-08] MEDS: FUROSEMIDE 40 MG TABLET PO SCH ×2 (08:18→09:14)
[2017-10-08] MEDS: METFORMIN 1,000 MG TABLET PO SCH ×2 (08:18→17:42)
[2017-10-08] MEDS: ASPIRIN/DIPYRIDAMOLE 25 MG/200 MG CAPSULE PO SCH ×2 (08:18→21:33)
[2017-10-08] MEDS: PROPRANOLOL 10 MG TABLET PO SCH ×2 (08:18→21:33)
[2017-10-08] MEDS: PREGABALIN 75 MG CAPSULE PO SCH ×2 (08:18→21:33)
--- NOTE | 2017-10-08 09:35 | Discharge Summary ---
<Rylan Byrd R - Last Filed: 10/08/17 09:19> Discharge Information Date of admission: 09/30/17 15:07 Attending Physician: Hossein Simms MD Primary care physician: Maria Teresa Alonso MD Consults: 09/30/17 15:47 Physician Consult [CONS] Routine Consulting Provider: Clint Bazan Reason For Exam: B.ankle pain(gout?)and left 5th metatarsal fx. Ordering Provider has Notified Participant Administrator: Yes 09/30/17 15:54 Physician Consult [CONS] Routine Consulting Provider: Brunilda Villarreal Reason For Exam: medical management Ordering Provider has Notified Participant Administrator: No 09/30/17 16:47 Physician [Physician Consult] [CONS] Routine Consulting Provider: Lubna Agustin Reason For Exam: weakness/falls Ordering Provider has Notified Participant Administrator: Yes 10/02/17 09:55 Dietary Consult [CONS] Routine Comment: Reason For Exam: 10/06/17 Ear Nose Throat Physician Consult [Inpatient Diabetic Consult] [CONS] Routine Diabetic Training: Monitoring Diabetes Nutritional Management Medications - Discharge Diagnosis (1) Fracture of base of fifth metatarsal bone of left foot Status: Acute (2) Debility Status: Chronic (3) 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 Matta presented to the ED on 09/28/17 after falling 3 times on the day of admission. Radiograph of the left ankle demonstrated a fracture at the base of the fifth metatarsal. Dr. Hernandez was consulted and a cam boot with weightbearing was recommended. Patient does have a language barrier. Two weeks prior to this event patient lives with his and has been mostly independent of ADLs. He did require assistance with eating and bathing. He ambulated with a cane or a rolling walker. 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 He was found to be unsafe at home and was admitted to IRU for intensive PT/OT as well as medical management. During IRU stay he has participated well in therapies with improvement. He is now felt to be safe at home. He will follow-up with Dr. Jorge Alonso. Hospital Course This is a general summary of the patient's hospital course. For more details refer to the complete medical record. Hospital course: 10/01/17 Agree with admission to IRU for continued strengthening and improvement in functional abilities. Pain control per Dr. Simms. Encourage participation in therapies. Continue home medications. Monitor blood sugars closely. Sliding scale insulin as needed. Lantus 25 units QHS. Carb controlled soft diet with nectar thickened liquids. Dr. Agustin to continue to monitor patient while in IRU. Will consult Dr. Hernandez if ankle pain persists and patient is wanting steroid injections. Monitor labs periodically throughout admission. Upon discharge, patient's care will be returned to his PCP. 10/04/17 Continue to encourage work with PT/OT Continue with CAM walker boot to left foot Overall blood sugars elevated. Will add home metformin and continue with Lantus 25 units at HS. Monitor blood pressure Continues to work with speech therapy 10/07/17 Aspirated on 10/06/17 - obtain CXR, CBC, BMP. He denies current sx but is limited d/t dementia. Modified barium: Aspiration with thin consistency barium Dr. Agustin recommended starting Lyrica 75 mg BID for diabetic neuropathy pain. May need outpatient nerve conduction and EMG testing. BG overall stable on current diabetic regimen. Resuscitation Status: Full Code Discharge Plan - Med Rec/Dispo Referrals/Follow Up: Maria Teresa Alonso MD [Primary Care Provider] - 2 Weeks (Dr. Olya Alonso on 10/19/17 at 2:50 am for Hosp. follow-up. . [facility] [address] [place] [address]) Nuvia Wooten APRN [Advanced Practice Nurse] - 10/20/17 2:30 pm Prescriptions: New Pregabalin Cap [Lyrica] 75 mg PO BID #60 cap Continue Aspirin/Dipyridamole [Aspirin-Dipyridam ER 25-200 mg] 1 cap PO BID #0 Insulin Glargine,Hum.rec.anlog [Lantus] 25 unit SQ HS #0 vial Albuterol HFA Inhaler [Ventolin Hfa 90 mcg/actuation] 1 - 2 puff ORAL INH Q6HR PRN PRN Reason: Shortness Of Air/Wheezing Allopurinol [Zyloprim] 300 mg PO BID Bumetanide Tab [Bumex 1 mg Tab] 1 mg PO DAILY Metformin HCl [Glucophage] 1,000 mg PO BID Propranolol [Inderal] 20 mg PO BID Levomefolate/B6/B12/Algal Oil [Foltanx Rf Capsule] 1 each PO BID Pravastatin Sodium [Pravachol] 20 mg PO HS #0 tab Cilostazol [Pletal] 50 mg PO BID - Disposition 01 Discharged Home, Self-Care - Dismissal Complete Discharge Instructions are:: Incomplete <Nae Zuluaga - Last Filed: 10/08/17 14:50> Discharge Information Date of admission: 09/30/17 15:07 Attending Physician: Hossein Simms MD Primary care physician: Maria Teresa Alonso MD Consults: 09/30/17 15:47 Physician Consult [CONS] Routine Consulting Provider: Clint Bazan Reason For Exam: B.ankle pain(gout?)and left 5th metatarsal fx. Ordering Provider has Notified Participant Administrator: Yes 09/30/17 15:54 Physician Consult [CONS] Routine Consulting Provider: Brunilda Villarreal Reason For Exam: medical management Ordering Provider has Notified Participant Administrator: No 09/30/17 16:47 Physician [Physician Consult] [CONS] Routine Consulting Provider: Lubna Agustin Reason For Exam: weakness/falls Ordering Provider has Notified Participant Administrator: Yes 10/02/17 09:55 Dietary Consult [CONS] Routine Comment: Reason For Exam: 10/06/17 Ear Nose Throat Physician Consult [Inpatient Diabetic Consult] [CONS] Routine Diabetic Training: Monitoring Diabetes Nutritional Management Medications - Discharge Diagnosis (1) Fracture of base of fifth metatarsal bone of left foot Status: Acute (2) Debility Status: Chronic (3) Hypertension Status: Chronic (4) Diabetes mellitus type 2 in nonobese Status: Acute (5) Chronic ankle pain, bilateral Status: Chronic (6) 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 For more details refer to the complete medical record. Hospital course: I personally examined the patient and reviewed the documentation by Fco Byrd APRN. I am in agreement w/ the contents of her note. Discharge is planned for tomorrow for Mr. Matta at the request of family so that he can go on a planned family trip to [place] to visit his sister. Will prepare for dismissal after therapies tomorrow are completed. Time spent with patient: discharge greater than 30 minutes
[2017-10-08] MEDS: IBUPROFEN 600 MG TABLET PO PRN (13:08)
[2017-10-08] MEDS: PRAVASTATIN 20 MG TABLET PO SCH (21:33)
[2017-10-08] MEDS: INSULIN GLARGINE 100unit/ml INJECTION SQ SCH (21:33)
[2017-10-08] MEDS: INSULIN ASPART 100unit/ml INJECTION SQ PRN (21:52)
[2017-10-09] MEDS: ASPIRIN/DIPYRIDAMOLE 25 MG/200 MG CAPSULE PO SCH (08:26)
[2017-10-09] MEDS: METFORMIN 1,000 MG TABLET PO SCH ×2 (08:26→17:20)
[2017-10-09] MEDS: ALLOPURINOL 300 MG TABLET PO SCH (08:26)
[2017-10-09] MEDS: PROPRANOLOL 10 MG TABLET PO SCH (08:26)
[2017-10-09] MEDS: PREGABALIN 75 MG CAPSULE PO SCH (08:27)
[2017-10-09] MEDS: SENNA + DOCUSATE TABLET PO SCH (08:27)
[2017-10-09] MEDS: POLYETHYL GLYCOL 3350 17gm PACKET PO SCH (08:27)
[2017-10-09] MEDS: INSULIN ASPART 100unit/ml INJECTION SQ PRN (12:02)
[2017-10-09] MEDS: IBUPROFEN 600 MG TABLET PO PRN (12:03)
[2017-10-09 16:10] VITALS: BP 129/80; PULSE 66; RESP 20; TEMP 98; O2SAT 92
== END 2017-10-09 20:01 | disposition home health service (06) | DRG 560 ==
PROVIDERS: ADMIT Internal Medicine; ATTEND Internal Medicine